=== PATIENT | male | born 1965 | race Caucasian/White ===

== ENCOUNTER 2019-08-17 14:00 | Emergency (ER) | payer BC, SELFPAY ==
[2019-08-17 14:09] VITALS: BP 132/86; PULSE 99; RESP 18; TEMP 36.7; O2SAT 97
--- NOTE | 2019-08-17 14:19 | ED.GENADULT ---
HPI - General Adult General Chief complaint: Abdominal Pain Stated complaint: abd pain Time Seen by Provider: 08/17/19 14:19 Source: patient Mode of arrival: ambulatory Limitations: no limitations History of Present Illness HPI narrative: 54-year-old male patient presents to the [facility] with complaints of abdominal pain and vomiting for the past 5 to 6 days. Patient states he started when he had some alcohol over the weekend as well as eating some spaghetti. Patient states the next day he had some slight abdominal pain a little bit of vomiting. Patient states not as much vomiting in the last couple of days denies any diarrhea but has had some upset stomach issues going on. Patient does have a history of diabetes but denies checking his sugar. Patient states he has had diabetic ketoacidosis before in the past. Patient states the only thing he has been taking for his symptoms is leftover [place] that is over 5 years . Patient states he does smoke, drink alcohol and does smoke cannabis. Patient states in the past he was always treated with narcotics for his stomach pain. Patient states he is also been under a lot of stress recently and thinks he might have some ulcers. Related Data Home Medications Medication Instructions Recorded Confirmed amlodipine [Norvasc] 10 mg PO DAILY 08/17/19 08/17/19 glimepiride [Amaryl] 2 mg PO QID 08/17/19 08/17/19 lisinopril 40 mg PO DAILY 08/17/19 08/17/19 metformin [Glucophage] 1,000 mg PO BID 08/17/19 08/17/19 pantoprazole [Protonix] 40 mg PO HS 08/17/19 08/17/19 Allergies Allergy/AdvReac Type Severity Reaction Status Date / Time erythromycin base Allergy Unknown Unknown Verified 08/17/19 14:28 Review of Systems Review of Systems: Narrative: CONSTITUTIONAL: Denies fever, chills, or sweats. EYES: Denies visual changes, redness, or discharge. ENT: Denies rhinorrhea, congestion, sore throat, or otalgia. CARDIOVASCULAR: Denies chest pain, palpitations, or edema. RESPIRATORY: Denies cough or dyspnea. GASTROINTESTINAL: Positive abdominal pain, nausea, vomiting, denies diarrhea. GENITOURINARY: Denies dysuria or hematuria. SKIN: Denies rash or itching. MUSCULOSKELETAL: Denies back pain, joint pain, or myalgia. NEUROLOGIC: Denies headache, numbness, or weakness. PSYCHIATRIC: Denies anxiety or depression. [facility] Past Medical History Medical History (Updated 08/17/19 @ 14:41 by EDSON Araujo) Alcohol use Bronchitis Dysphagia Esophageal stricture Gastric cancer Gastric nodule GERD (gastroesophageal reflux disease) Hiatal hernia Hypertension Sleep apnea Type 2 diabetes mellitus Surgical History Surgical History (Updated 08/17/19 @ 14:23 by EDSON Araujo) Hx of tonsillectomy Family History Family History Other Diabetes mellitus Social History Social History (Updated 08/17/19 @ 14:25 by EDSON Araujo) Smoking status: Current every day smoker Alcohol intake: current Gender identity (if verbalized by the patient): Male Comments At the time of my signature I agree with nursing past medical history, surgical, social, and family history. There is no relevant family history pertinent to the presenting complaint. Exam Narrative: Exam Narrative: GENERAL: Well-appearing, well-nourished, and in no acute distress. HEAD: Normocephalic, atraumatic. EYES: PERRLA and EOMI. ENT: Nares clear, no rhinorrhea or epistaxis. Mucous membranes moist. NECK: Supple. No lymphadenopathy CHEST: Clear to auscultation. No respiratory distress. HEART: Regular rate and rhythm. No murmur heard. Normal peripheral pulses. ABDOMEN: Soft, flat, distended. No guarding, rebound tenderness, or rigid. No pulsatilla masses. Bowel sounds present in all four quadrants. No organomegaly. Negative Nayak?s sign. No periumbicial tenderness. No Supra public tenderness or distension. Good femoral pulses bilaterally. No hernia noted. No s
[2019-08-17 14:29] LABS: Glucose Point of Care 264 (65-105)
== END 2019-08-17 14:50 | disposition home or self-care (01) ==
PROVIDERS: Emergency Provider Nurse Practitioner Family; PCP Registered Nurse
DX: K21.9 Gastro-esophageal reflux disease without esophagitis (principal); F17.210 Nicotine dependence, cigarettes, uncomplicated; I10 Essential (primary) hypertension; E11.9 Type 2 diabetes mellitus without complications; G47.30 Sleep apnea, unspecified; Z85.00 Personal history of malignant neoplasm of unspecified digestive organ
CPT/HCPCS: 82948; 99213; G0463

== ENCOUNTER 2019-08-28 10:15 | Emergency (ER) | payer BC, SELFPAY ==
[2019-08-28 10:23] VITALS: BP 162/100; PULSE 94; RESP 18; TEMP 36.2; O2SAT 100
--- NOTE | 2019-08-28 10:34 | ED.ABDPAIN ---
HPI - Abdominal Pain General Chief Complaint: Abdominal Pain Stated Complaint: abd pain Time Seen by Provider: 08/28/19 10:25 Source: patient, RN notes reviewed and old records reviewed Mode of arrival: ambulatory Limitations: no limitations History of Present Illness HPI narrative: Patient presents today complaining of a several week history of increased GERD symptoms and upper abdominal pain. He was seen at urgent care on 08/17/2019 and discharged home with prescriptions for omeprazole, Pepcid, and Zofran. Patient already takes 40 mg of Protonix at night. He has seen his PCP regarding his increased symptoms and was told to make an appointment with GI, which she has not done. He believes he has ulcers and came to urgent care today to get antibiotics. He currently rates his pain 5/10. Denies fever, recent vomiting, diarrhea. He has not made any dietary changes since his last visit, except for not drinking alcohol. Reports history of gastric ulcers in the past. MD elicited complaint: abdominal pain Related Data Home Medications Medication Instructions Recorded Confirmed amlodipine [Norvasc] 10 mg PO DAILY 08/17/19 08/17/19 glimepiride [Amaryl] 2 mg PO QID 08/17/19 08/17/19 lisinopril 40 mg PO DAILY 08/17/19 08/17/19 metformin [Glucophage] 1,000 mg PO BID 08/17/19 08/17/19 pantoprazole [Protonix] 40 mg PO HS 08/17/19 08/17/19 Allergies Allergy/AdvReac Type Severity Reaction Status Date / Time erythromycin base Allergy Unknown Unknown Verified 08/28/19 10:27 Review of Systems Review of Systems: Narrative: CONSTITUTIONAL: Denies body aches, fever, chills, or sweats. EYES: Denies visual changes, redness, or discharge. ENT: Denies rhinorrhea, congestion, sore throat, or otalgia. CARDIOVASCULAR: Denies chest pain, palpitations, or edema. RESPIRATORY: Denies cough or dyspnea. GASTROINTESTINAL: Denies nausea, vomiting, or diarrhea.+ Abdominal pain GENITOURINARY: Denies dysuria or hematuria. SKIN: Denies rash, itching, or wounds. MUSCULOSKELETAL: Denies back pain, joint pain, or myalgia. NEUROLOGIC: Denies headache, numbness, tingling, or weakness. PSYCH: Denies depression or anxiety. [facility] Past Medical History Medical History (Updated 08/28/19 @ 10:38 by Christine Little, EDSON, ) Alcohol use Bronchitis Dysphagia Esophageal stricture Gastric cancer Gastric nodule GERD (gastroesophageal reflux disease) Hiatal hernia Hypertension Sleep apnea Type 2 diabetes mellitus Surgical History Surgical History (Updated 08/17/19 @ 14:23 by EDSON Araujo) Hx of tonsillectomy Social History Social History (Updated 08/17/19 @ 14:25 by EDSON Araujo) Smoking status: Current every day smoker Alcohol intake: current Gender identity (if verbalized by the patient): Male Comments At time of signature, I have reviewed and agree with nursing past medical, surgical, social and family history unless otherwise noted. Please see nursing chart for further information. There is no relevant family history pertinent to the presenting complaint Exam Narrative: Exam Narrative: GENERAL: Well-appearing, well-nourished, and in no acute distress. HEAD: Normocephalic, atraumatic. EYES: EOMI. No redness or drainage. Conjunctivae normal. ENT: Mucous membranes pink and moist. NECK: Normal AROM. Supple. No lymphadenopathy. CHEST: No respiratory distress. Clear to auscultation. HEART: Regular rate and rhythm. No murmur appreciated. Normal peripheral pulses. ABDOMEN: Soft, nontender, nondistended, normal active bowel sounds. MUSCULOSKELETAL: No bony tenderness. EXTREMITIES: Normal range of motion. No edema. SKIN: Warm, dry, no rash. NEURO: No focal deficits. Alert and oriented x3. Gait steady. PSYCH: Normal affect. No signs of depression or anxiety. Course Vital Signs Vital signs: Vital Signs Temperature 97.1 F L 08/28/19 10:23 Pulse Rate 94 08/28/19 10:23 Respiratory Rate 18 08/28/19 10:23 Blood
--- NOTE | 2019-08-28 10:36 | PC.NURSE ---
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
== END 2019-08-28 10:42 | disposition home or self-care (01) ==
PROVIDERS: Emergency Provider Nurse Practitioner; PCP Registered Nurse
DX: K29.70 Gastritis, unspecified, without bleeding (principal); K21.9 Gastro-esophageal reflux disease without esophagitis; F17.200 Nicotine dependence, unspecified, uncomplicated; I10 Essential (primary) hypertension; G47.30 Sleep apnea, unspecified; E11.9 Type 2 diabetes mellitus without complications
CPT/HCPCS: 99213; G0463

== ENCOUNTER 2019-11-28 19:32 | Emergency (ER) | payer BC, SELFPAY ==
--- NOTE | 2019-11-28 19:38 | ED.GENADULT ---
HPI - General Adult General Stated complaint: sore throat Time Seen by Provider: 11/28/19 19:37 Source: patient Mode of arrival: ambulatory Limitations: no limitations History of Present Illness HPI narrative: 54-year-old male patient presents to the [facility] with complaints of sore throat that started Wednesday. Patient states he has not had a fever that he is aware of. Denies any ear pain, runny nose or any drainage to the back the throat. Patient states he is a smoker. Patient denies any chest pain or shortness of breath. Patient states he has had strep before in the past and has since had his tonsils removed. Patient states he has had strep since having his tonsils removed and responded, get checked out today. Related Data Home Medications Medication Instructions Recorded Confirmed amlodipine [Norvasc] 10 mg PO DAILY 08/17/19 08/17/19 glimepiride [Amaryl] 2 mg PO QID 08/17/19 08/17/19 lisinopril 40 mg PO DAILY 08/17/19 08/17/19 metformin [Glucophage] 1,000 mg PO BID 08/17/19 08/17/19 pantoprazole [Protonix] 40 mg PO HS 08/17/19 08/17/19 Allergies Allergy/AdvReac Type Severity Reaction Status Date / Time erythromycin base Allergy Unknown Unknown Verified 08/28/19 10:27 Review of Systems Review of Systems: Narrative: CONSTITUTIONAL: Denies fever, chills, or sweats. EYES: Denies visual changes, redness, or discharge. ENT: Denies rhinorrhea, congestion, positive sore throat, denies otalgia. CARDIOVASCULAR: Denies chest pain, palpitations, or edema. RESPIRATORY: Denies cough or dyspnea. GASTROINTESTINAL: Denies abdominal pain, nausea, vomiting, or diarrhea. GENITOURINARY: Denies dysuria or hematuria. SKIN: Denies rash or itching. MUSCULOSKELETAL: Denies back pain, joint pain, or myalgia. NEUROLOGIC: Denies headache, numbness, or weakness. PSYCHIATRIC: Denies anxiety or depression. [facility] Past Medical History Medical History Alcohol use Bronchitis Dysphagia Esophageal stricture Gastric cancer Gastric nodule GERD (gastroesophageal reflux disease) Hiatal hernia Hypertension Sleep apnea Type 2 diabetes mellitus Surgical History Surgical History Hx of tonsillectomy Social History Social History Smoking status: Current every day smoker Alcohol intake: current Gender identity (if verbalized by the patient): Male Comments At the time of my signature I agree with nursing past medical history, surgical, social, and family history. There is no relevant family history pertinent to the presenting complaint. Exam Narrative: Exam Narrative: GENERAL: Well-appearing, well-nourished, and in no acute distress. HEAD: Normocephalic, atraumatic. EYES: PERRLA and EOMI. ENT: Nares clear, no rhinorrhea or epistaxis. Mucous membranes moist. Posterior pharynx with erythema, bilateral tonsillar swelling. No exudates or lesions present. Bilateral TMs are clear no erythema or foreign bodies in the canal. NECK: Supple. No lymphadenopathy CHEST: Clear to auscultation. No respiratory distress. Patient able talk in clear complete sentences. HEART: Regular rate and rhythm. No murmur heard. Normal peripheral pulses. ABDOMEN: Soft, nontender, nondistended, normal active bowel sounds. EXTREMITIES: Normal range of motion. No edema. SKIN: Warm, dry, no rash. NEURO: No focal deficits. Alert and oriented x3. Course Reevaluation(s) Reevaluation #1: Reevaluated patient after his strep test had resulted. Discussed with him that his strep test is negative today. Discussed with him this is most likely viral and I would recommend taking Tylenol for the pain, warm salt water gargles, hot tea and honey to help soothe the throat. Discussed with patient if the strep culture comes back positive in the next day or 2 [address] call and place him on antibiotics at that time. Patient is
[2019-11-28 19:41] VITALS: BP 148/90; PULSE 102; RESP 16; TEMP 36.8; O2SAT 99
== END 2019-11-28 20:07 | disposition home or self-care (01) ==
PROVIDERS: Emergency Provider Nurse Practitioner Family; PCP Registered Nurse
DX: J02.9 Acute pharyngitis, unspecified (principal); G47.30 Sleep apnea, unspecified; I10 Essential (primary) hypertension; K21.9 Gastro-esophageal reflux disease without esophagitis; Z79.84 Long term (current) use of oral hypoglycemic drugs; F17.200 Nicotine dependence, unspecified, uncomplicated; Z85.00 Personal history of malignant neoplasm of unspecified digestive organ
CPT/HCPCS: 87081; 87880; 99213; G0463

== ENCOUNTER 2022-05-20 13:22 | Emergency (ER) | payer BC, SELFPAY ==
--- NOTE | 2022-05-20 13:28 | ED.URI ---
HPI - URI/Sore Throat General Chief Complaint: Upper Respiratory Infection Stated Complaint: cold/flu like sx Time Seen by Provider: 05/20/22 14:03 Source: patient and RN notes reviewed Mode of arrival: ambulatory Limitations: no limitations History of Present Illness HPI Narrative: [age]-old male presents concern for body aches, sore throat that started yesterday. 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 He denies fevers, nasal congestion, postnasal drainage, chills, sweats, runny nose, headache, upset stomach MD elicited complaint: sore throat Related Data Home Medications Medication Instructions Recorded Confirmed amlodipine 10 mg tablet (Norvasc) 10 mg PO DAILY 08/17/19 05/20/22 glimepiride 2 mg tablet (Amaryl) 2 mg PO QID 08/17/19 05/20/22 lisinopril 40 mg tablet 40 mg PO DAILY 08/17/19 05/20/22 metformin 1,000 mg tablet 1,000 mg PO BID 08/17/19 05/20/22 (Glucophage) pantoprazole 40 mg tablet,delayed 40 mg PO HS 08/17/19 05/20/22 release (Protonix) Allergies Allergy/AdvReac Type Severity Reaction Status Date / Time erythromycin base Allergy Unknown Unknown Verified 08/28/19 10:27 Review of Systems Review of Systems: CONSTITUTIONAL: Denies malaise, chills, sweats, or fever. EYES: Denies visual changes, redness, or discharge. ENT: Reports rhinorrhea, congestion, sinus pain, otalgia and sore throat. CARDIOVASCULAR: Denies chest pain, palpitations, or edema. RESPIRATORY: Reports cough. Denies dyspnea. GASTROINTESTINAL: Denies abdominal pain, nausea, vomiting, diarrhea SKIN: Denies rash or itching. MUSCULOSKELETAL: Denies myalgia. NEUROLOGIC: Denies headache. All systems reviewed & are unremarkable except as noted in HPI and below PMFSH Past Medical History Medical History (Updated 05/20/22 @ 14:25 by Linn Storey NP) Alcohol use Bronchitis Dysphagia Esophageal stricture Gastric cancer Gastric nodule GERD (gastroesophageal reflux disease) Hiatal hernia Hypertension Sleep apnea Type 2 diabetes mellitus Surgical History Surgical History Hx of tonsillectomy Family History Family History Other Diabetes mellitus Social History Social History Smoking status: Current every day smoker Alcohol intake: current Gender identity (if verbalized by the patient): Male Comments At time of signature, agree with nursing past medical, surgical, social and family history. There is no relevant family history pertinent to the presenting complaint Exam Narrative: GENERAL: Nontoxic-appearing and in no acute distress. HEAD: Normocephalic EYES: PERRLA, conjunctivae clear ENT: Nares mariano. Mucous membranes moist. TM pearly alba with dull light reflex bilaterally; no tragal tenderness. Oropharynx erythematous without lesions. Tonsils enlarged with copious exudate, no drooling, no hoarseness, no trismus, uvula midline. NECK: Supple. No lymphadenopathy CHEST: Clear to auscultation, breath sounds equal. No wheezing, rhonchi, rales, or stridor. No respiratory distress, speaks in full sentences. HEART: Regular rate and rhythm. No murmur heard. SKIN: Warm, dry, no rash. NEURO: Alert and oriented x3. PSYCH: Normal mood and affect Course Course Emergency Course: Patient is aware of diagnosis, understands and agrees to treatment plan. Anticipatory guidance given. Patient agrees to follow-up as directed and is aware of reasons to seek care at the emergency department. Portions of this record may have been created with voice recognition software Level of Care: Express Care Visit Vital Signs Vital signs: Vital Signs Temperature 98.4 F 05/20/22 13:39 Pulse Rate 102 H 05/20/22 13:39 Respiratory Rate 20 05/20/22 13:39 Blood Pressure 127/66 05/20/22 13:39 Pulse Oximetry 98 05/20/22 13:
[2022-05-20 13:39] VITALS: BP 127/66; PULSE 102; RESP 20; TEMP 36.9; O2SAT 98
== END 2022-05-20 14:33 | disposition home or self-care (01) ==
PROVIDERS: Emergency Provider Nurse Practitioner; PCP Registered Nurse
DX: J02.0 Streptococcal pharyngitis (principal); Z20.822 Contact with and (suspected) exposure to COVID-19; F17.200 Nicotine dependence, unspecified, uncomplicated; K21.9 Gastro-esophageal reflux disease without esophagitis; I10 Essential (primary) hypertension; E11.9 Type 2 diabetes mellitus without complications
CPT/HCPCS: 87426; 87804; 87880; 99213; C9803; G0463

== ENCOUNTER 2025-01-16 02:38 | Day surgery (SDC) | payer BC, SELFPAY ==
[2025-01-03 14:49] VITALS: BMI 32.3
--- OUTSIDE RECORDS SUMMARY | 2025-01-16 02:42 | XMS_ITS | Encounter Summary ---
Author Organization [facility] Address [address] [place] [id number] Care Team Providers Care Embedded Systems Designer Name Role Phone Radha Bower Primary Care Provider [phone] Encounter Details Date Type Department Care Team (Late Contact Info) Description 04/18/2018 Abstract HEALTH INFO [facility] Scanned, Documents Social History Tobacco Use Types Packs/Day Years Used Date Smoking Tobacco: Every Day Cigarettes Smokeless Tobacco: Never Alcohol Use Standard Drinks/Week Comments Yes 0 (1 standard drink = 0.6 oz pur e alcohol) Sex and Gender Information Value Date Recorded Sex Assigned at Male 10/03/2024 2:16 PM CDT Legal Sex Male 7:10 PM CDT Gender Identity Not on file Sexual Orientation Not on file documented as of this encounter Plan of Treatment Not on file documented as of this encounter Visit Diagnoses Not on filedocumented in this encounter Care Teams Embedded Systems Designer Relationship Specialty Start Date End Date Radha Bower APNP [address] [place] [address] PCP - General NURSE PRACTITIONER 03/19/18 documented as of this encounter
--- OUTSIDE RECORDS SUMMARY | 2025-01-16 02:42 | XMS_ITS | Clinical Summary ---
Author Organization [facility] Physician Office Building [address] [place] [id number] Care Team Providers Care Space And Storage Clerk Name Role Phone Radha Bower Primary Care Provider + Allergies Active Allergy Reactions Criticality Noted Date Comments Erythromycin Hives Medium 08/08/2012 Medications amLODIPine (NORVASC) 10 mg tablet Take 1 tablet (10 mg total) by mouth daily 08/25/19 19 Active lisinopril (PRINIVIL,ZESTR IL) 40 mg tablet Take 1 tablet (40 mg total) by mouth daily 08/25/[address] (PROTONIX) 40 mg EC tablet Take 1 tablet (40 mg total) by mouth daily 08/25/19 19 Active CONTOUR NEXT METER miscIndications :Type 2 diabetes mellitus with hyperglycemia, without long-term current use of insulin ([facility]) FOR DAILY USE DX:E11.65 not insulin dependent 1 each 06/19/19 20 Active lancets miscIndications :Type 2 diabetes mellitus with hyperglycemia, with long-term current use of insulin ([facility]) Lancets for contour next meter.test blood sugars 2 times daily 100 each 3 07/15/19 21 Active rosuvastatin (CRESTOR) 10 mg tablet 09/17/19 21 Active pen needle, diabetic (BD Mikaela 2nd Gen Pen Needle) 32 gauge x 32 needleIndicatio ns:Type 2 diabetes mellitus with hyperglycemia, with long-term current use of insulin ([facility]) Use 4 x daily as directed 120 each 11 07/14/19 22 Active Contour Next Test Strips stripIndication s:Type 2 diabetes mellitus with hyperglycemia, with long-term current use of insulin ([facility]) USE TO TEST TWICE DAILY 200 strip 11 08/31/19 24 Active metFORMIN (GLUCOPHAGE) 1,000 mg tabletIndicatio ns:Type 2 diabetes mellitus with hyperglycemia, with long-term current use of insulin ([facility]) TAKE 1 TABLET(1000 MG) BY MOUTH TWICE DAILY WITH MEALS 180 tablet 3 05/08/20 24 Active insulin glargine-lixise natide (Soliqua 100/33) 100 unit-33 mcg/mL insulin penIndications: Type 2 diabetes mellitus with hyperglycemia, with long-term current use of insulin ([facility]) Inject 60 Units under the skin daily 30 mL 3 09/09/19 25 026 Active glimepiride (AMARYL) 2 mg tabletIndicatio ns:Type 2 diabetes mellitus with hyperglycemia, with long-term current use of insulin ([facility]) TAKE 2 TABLETS(4 MG) BY MOUTH TWICE DAILY WITH MEALS 360 tablet 3 11/01/19 25 Active phentermine (ADIPEX-P) 37.5 mg tabletIndicatio ns:Class 1 obesity due to excess calories with serious comorbidity and body mass index (BMI) of 33.0 to 33.9 in adult Take 1 tablet (37.5 mg total) by mouth daily before breakfast 90 tablet 1 12/29/19 25 Active metFORMIN (GLUCOPHAGE) 1,000 mg tabletIndicatio ns:Type 2 diabetes mellitus with hyperglycemia, with long-term current use of insulin ([facility]) TAKE 1 TABLET(1000 MG) BY MOUTH TWICE DAILY WITH MEALS 180 tablet 3 05/08/20 24 025 Discontinued(Du plicate order) phentermine (ADIPEX-P) 37.5 mg tabletIndicatio ns:Class 1 obesity due to excess calories with serious comorbidity and body mass index (BMI) of 33.0 to 33.9 in adult TAKE 1 TABLET(37.5 MG) BY MOUTH DAILY BEFORE BREAKFAST 90 tablet 1 09/19/19 25 025 Discontinued Active Problems Problem Noted Date Diagnosed Date Hyperlipidemia associated with type 2 diabetes emily michael 12/02/2020 Assessment & Plan (12/28/2024 11:39 AM CDT): Chronic problem. At goal on current Rosuvastatin 10mg. Last lipid panel: 09/13/24 LDL=68, JR=548. Assessment & Plan (09/08/2024 9:21 AM CDT): Chronic problem. At goal on current Rosuvastatin 10mg. Last lipid panel: 10/05/23 LDL=66, QO=641. Will update labs. Does not mychart. Verified phone #/address to contact re: results. Assessment & Plan (04/25/2024 9:51 AM TRANSFER SPECIALIST): Chronic problem. At goal on current Rosuvastatin 10mg. Last lipid panel: 10/05/23 LDL=66, HJ=840. Assessment & Plan (12/28/2023 1:44 PM CDT): Chronic problem. At goal on current Rosuvastatin 10mg. Last lipid panel: 10/05/23 LDL=66, ZM=702. Assessment & Plan (03/22/2023 2:29 PM CDT): Chronic problem. At goal on current Rosuvastatin 10mg. Last lipid panel: 09/17/22 LDL=70, AA=796. 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 A1c uncontrolled but decreased slightly from 9.4% 09/08/24 to now 9.3%. insurance does not cover Ozempic nor Mounjaro. Will maximize the Soliqua. Discussed diet at length; poor intake. Increase Soliqua by 4 units every morning until fasting blood glucose is less than 130 every morning without lows overnight or during day. Max is 60 units/day. -increase Soliqua now to 52 units daily & 56 units daily next week. (Next doses are 56 & then 60). Max dose is 60. Current medications: Metformin 1000mg twice daily with meals Glimepiride 4 mg twice daily with meals Soliqua 52 units daily UTD on labs. UTD on DM eye exam (05/12/24 [facility]. L eye Mild NPDR, no DME). Had appt 12/20/24. Letter sent to get copy of report. Strive for regular exercise (30min most days) and diet (get at least 4-5 servings of fruit and veggies daily, avoid processed foods, increase lean protein intake and decrease carb portions as well as fruit juices, regular soda & desserts). Watch carbs and simple sugars. Check the blood sugar twice daily. Check the feet daily for skin breakdown and infection. Assessment & Plan (09/08/2024 9:39 AM CDT): Chronic problem. A1c uncontrolled and worsened from 9.0% 04/25/24 to now 9.4%. insurance does not cover Ozempic nor Mounjaro. Will maximize the Soliqua. Discussed diet at length; poor intake. Smells of ETOH at this mornings visit. Increase Soliqua by 4 units every morning until fasting blood glucose is less than 130 every morning without lows overnight or during day. Max is 60 units/day. -increase Soliqua now to 48 units daily & 52 units daily next week. (Next doses are 56 & then 60). Max dose is 60. Current medications: Metformin 1000mg twice daily with meals Glimepiride 4 mg twice daily with meals Soliqua 48 units at daily Will update labs. Does not mychart. Verified phone #/address to contact re: results. UTD on DM eye exam (05/12/24 [facility]. L eye Mild NPDR, no DME). Had appt 08/2024. Letter sent to get copy of report. Strive for regular exercise (30min most days) and diet (get at least 4-5 servings of fruit and veggies daily, avoid processed foods, increase lean protein intake and decrease carb portions as well as fruit juices, regular soda & desserts). Watch carbs and simple sugars. Check the blood sugar twice daily. Check the feet daily for skin breakdown and infection. Assessment & Plan (04/25/2024 10:06 AM TRANSFER SPECIALIST): Chronic problem. A1c uncontrolled and worsened from 8.3% 12/28/23 to now 9.0%. will check to see if yolanda/flex is on formulary for new insurance for next year. Increase Soliqua by 4 units every morning until fasting blood glucose is less than 130 every morning without lows overnight or during day. Max is 60 units/day. -increase Soliqua now to 44 units daily & 48 units daily next week. Stay at 48 units. Current medications: Metformin 1000mg twice daily with meals Glimepiride 4 mg twice daily with meals Soliqua 44 units at daily UTD on labs. DM eye exam Strive for regular exercise (30min most days) and diet (get at least 4-5 servings of fruit and veggies daily, avoid processed foods, increase lean protein intake and decrease carb portions as well as fruit juices, regular soda & desserts). Watch carbs and simple sugars. Check the blood sugar twice daily. Check the feet daily for skin breakdown and infection. Assessment & Plan (12/28/2023 2:17 PM CDT): Chronic problem. A1c uncontrolled at 8.3% but has decreased from 8.8% 03/22/23 -increase Soliqua by 4 units every morning until fasting blood glucose is less than 160 every morning without lows overnight or during day. Max is 60 units/day. Will increase up to 42 units at most until NOV. Current medications: Metformin 1000mg twice daily with meals Glimepiride 4 mg twice daily with meals Soliqua 34 units at daily UTD on labs. DM eye exam Strive for regular exercise (30min most days) and diet (get at least 4-5 servings of fruit and veggies daily, avoid processed foods, increase lean protein intake and decrease carb portions as well as fruit juices, regular soda & desserts). Watch carbs and simple sugars. Check the blood sugar twice daily. Check the feet daily for skin breakdown and infection. Assessment & Plan (03/22/2023 2:42 PM CDT): Chronic problem. A1c stable at 8.8% (was 9.0%). Reviewed diet. Has been taking soliqua at HS. Will move to morning dosing. Discussed need to take approx 1hr prior to 1st meal of day. Need to start checking BS BID as A1c does not match to his BS of 90s as he reports. Current medications: Metformin 1000mg twice daily with meals Glimepiride 4 mg twice daily with meals Soliqua 30 units at daily (move up time your taking the Soliqua daily by 2 hours to get to morning dosing instead of the evening). To call to set up DM eye exam. Will update MA/Cr today. Strive for regular exercise (30min most days) and diet (get at least 4-5 servings of fruit and veggies daily, avoid processed foods, increase lean protein intake and decrease carb portions as well as fruit juices, regular soda & desserts). Watch carbs and simple sugars. Check the blood sugar twice daily. Check the feet daily for skin breakdown and infection. Assessment & Plan (11/30/2022 7:14 PM CDT): Chronic, uncontrolled, worsening A1c 9.0 % Inconsistent Carb intake Counseled patient on diet and exercise Advised to work on healthy weight loss Pt does not want to do rapid acting insulin - advise to stop Semglee - Start Soliqua 30 units SQ daily - continue current Glimepiride and oral metformin dose - follow-up in 3 months Assessment & Plan (04/06/2022 2:04 PM CDT): Chronic, uncontrolled, worsening A1c 8.2 % Inconsistent Carb intake Counseled patient on diet and exercise Advised to work on healthy weight loss Patient deferred to try S GLT 2 inhibitors and GLP 1 agonist due to cost - continue current medication regimen Advise to take FASP insulin 6 to 10 units t.i.d. with meals - advised to check blood sugars before each meal - follow-up in 4 months Assessment & Plan (10/20/2021 11:51 AM CDT): Chronic, uncontrolled, improving A1c 7.6 % Counseled patient on diet and exercise Advised to work on healthy weight loss Patient deferred to try S GLT 2 inhibitors and GLP 1 agonist due to cost - continue current medication regimen Increase FASP insulin to 10 units t.i.d. with meals - advised to check blood sugars before each meal - make an eye exam appointments soon - follow-up in 4 months Assessment & Plan (07/14/2021 1:12 PM TRANSFER SPECIALIST): Chronic, uncontrolled, worsening A1c 8.7% Suspect postprandial hyperglycemia Counseled patient on diet and exercise Advised to work on healthy weight loss Patient deferred to try S GLT 2 inhibitors and GLP 1 agonist due to cost - continue current medication regimen Add FASP insulin 6 units t.i.d. with meals - advised to check blood sugars before each meal - make an eye exam appointments - follow-up in 3 months Assessment & Plan (04/07/2021 12:02 PM CDT): Diabetes is worsening HbA1c - 8.0 % Suspect post prandial hyperglycemia No BS log to review Advised pt to cut back on carbs intake, cut back on drinking and exercise Patient not willing to go up on his insulin dose or add any new medications Continue taking Lantus 30 units SQ daily at Bedtime Keep taking Metformin and Glimepiride the same Start checking blood sugars - before breakfast and before dinner and bedtime GLP-1 agonist and SGLT-2 inhibitors are expensive - Keep working on portion control diet and work on exercise Healthy weight loss - advised to make an eye exam appointment soon - labs before next appointment - follow up in 3 months Reminded to bring in blood sugar diary at next visit. Dietary recommendations for ADA diet. Regular aerobic exercise. Discussed ways to avoid symptomatic hypoglycemia. Discussed sick day management. Discussed foot care. Reminded to get yearly retinal exam. Medication changes per orders. Diabetes will be reassessed in 3 months. Assessment & Plan (12/02/2020 11:07 AM CDT): Diabetes is improving with treatment slowly HbA1c - 7.7 % Suspect post prandial hyperglycemia No BS log to review Advised pt to cut back on carbs intake, cut back on drinking and exercise Continue taking Lantus 30 units SQ daily at Bedtime Keep taking Metformin and Glimepiride the same Start checking blood sugars - before breakfast and before dinner and bedtime GLP-1 agonist and SGLT-2 inhibitors are expensive - Keep working on portion control diet and work on exercise Healthy weight loss - follow up in 5 months Reminded to bring in blood sugar diary at next visit. Dietary recommendations for ADA diet. Regular aerobic exercise. Discussed ways to avoid symptomatic hypoglycemia. Discussed sick day management. Discussed foot care. Reminded to get yearly retinal exam. Medication changes per orders. Diabetes will be reassessed in 3 months. Assessment & Plan (07/15/2020 2:02 PM TRANSFER SPECIALIST): Diabetes is unchanged HbA1c - 7.9 % Suspect post prandial hyperglycemia No BS log to review Advised pt to cut back on carbs intake, cut back on drinking and exercise Continue taking Lantus 30 units SQ daily at Bedtime Start Farxiga 10 mg oral daily Keep taking Metformin and Glimepiride the same Start checking blood sugars - before breakfast and before dinner and bedtime - Keep working on portion control diet and work on exercise Healthy weight loss - follow up in 3 months Reminded to bring in blood sugar diary at next visit. Dietary recommendations for ADA diet. Regular aerobic exercise. Discussed ways to avoid symptomatic hypoglycemia. Discussed sick day management. Discussed foot care. Reminded to get yearly retinal exam. Medication changes per orders. Diabetes will be reassessed in 3 months. Assessment & Plan (03/25/2020 12:48 PM CDT): Diabetes is improving with treatment HbA1c - 7.9 % Continue taking Lantus 30 units SQ daily at Bedtime Start Farxiga 10 mg oral daily Keep taking Metformin and Glimepiride the same Start checking blood sugars - before breakfast and before dinner and bedtime - Keep working on portion control diet and work on exercise Healthy weight loss - follow up in 3 months Reminded to bring in blood sugar diary at next visit. Dietary recommendations for ADA diet. Regular aerobic exercise. Discussed ways to avoid symptomatic hypoglycemia. Discussed sick day management. Discussed foot care. Reminded to get yearly retinal exam. Medication changes per orders. Diabetes will be reassessed in 3 months. Assessment & Plan (01/29/2020 10:23 PM CDT): Diabetes is worsening HbA1c - 9.8 % Start taking Lantus 24 units SQ daily at Bedtime If fasting blood sugars are over 130 , increase by 2 units every week ( up to max dose of 40 units SQ daily ) Keep taking Metformin and Glimepiride the same Start checking blood sugars - before breakfast and before dinner and bedtime - Keep working on portion control diet and work on exercise Healthy weight loss - follow up in 2 months - make an eye doctor appointment Reminded to bring in blood sugar diary at next visit. Dietary recommendations for ADA diet. Regular aerobic exercise. Discussed ways to avoid symptomatic hypoglycemia. Discussed sick day management. Discussed foot care. Reminded to get yearly retinal exam. Medication changes per orders. Diabetes will be reassessed in 2 months . Assessment & Plan (06/07/2019 7:32 PM TRANSFER SPECIALIST): Diabetes is improving with treatment and lifestyle modifications A1c Today - 8.2 % , but still not at goal - continue Glimepiride An Metformin The same - pt cannot afford Januvia - gave samples of Oral Semaglutide 3 mg daily and sent a script for 7 mg tab - check Blood sugars - twice daily - Before breakfast and before dinner - make an eye doctor appointment - follow up in 3 months Reminded to bring in blood sugar diary at next visit. Dietary recommendations for ADA diet. Regular aerobic exercise. Discussed ways to avoid symptomatic hypoglycemia. Discussed sick day management. Discussed foot care. Reminded to get yearly retinal exam. Medication changes per orders. Diabetes will be reassessed in 3 months. Assessment & Plan (02/27/2019 1:47 PM CDT): Diabetes is improving with treatment and lifestyle modifications A1c Today - 8.8 % , but still not at goal - pt has very poor insight regarding DM and healthy lifestyle habits - pt do not prefer to start any injectable medications or SGLT_2 inhibitor class of meds - Gave Januvia 100 mg and janumet samples today - gave instructions on how to take - continue Glimepiride The same - advise to take Metformin the same way when taking Januvia , but when taking janumet samples, advise to hold his regular metformin - check Blood sugars - twice daily - Before breakfast and before dinner - make an eye doctor appointment - follow up in 3 months Reminded to bring in blood sugar diary at next visit. Dietary recommendations for ADA diet. Regular aerobic exercise. Discussed ways to avoid symptomatic hypoglycemia. Discussed sick day management. Discussed foot care. Reminded to get yearly retinal exam. Medication changes per orders. Diabetes will be reassessed in 3 months. Assessment & Plan (11/22/2018 8:18 PM CDT): Diabetes is worsening. A1c Today - 10 % - pt has very poor insight regarding DM and healthy lifestyle habits - discussed about DM type 2, - patho physiology, short and senior care complications of uncontrolled DM, diet and exercise , importance on of BS monitoring, medications options - discussed goal BS and A1c targets - advise to start checking BS - before Meals and bedtime - advise to work on healthy diet, avoid processed foods , increase vegetables and protein and cut back on carb portions and also avoid fruit juices and regular soda and desserts - Start Januvia 100 mg oral daily with breakfast - continue Metformin and Glimepiride The same - start checking Blood sugars - twice daily - Before breakfast and before dinner - do labs JP - make an eye doctor appointment - follow up in 3 months Reminded to bring in blood sugar diary at next visit. Dietary recommendations for ADA diet. Regular aerobic exercise. Discussed ways to avoid symptomatic hypoglycemia. Discussed sick day management. Discussed foot care. Reminded to get yearly retinal exam. Medication changes per orders. Diabetes will be reassessed in 3 months. Hypertension associated with diabetes 11/21/2018 Assessment & Plan (12/28/2024 11:39 AM CDT): Chronic problem. Currently controlled Lisinopril 40mg daily, amlodipine 10mg daily Assessment & Plan (09/08/2024 9:21 AM CDT): Chronic problem. Currently controlled Lisinopril 40mg daily, amlodipine 10mg daily Will update labs. Does not mychart. Verified phone #/address to contact re: results. Assessment & Plan (04/25/2024 9:51 AM TRANSFER SPECIALIST): Chronic problem. Currently controlled Lisinopril 40mg daily, amlodipine 10mg daily Assessment & Plan (12/28/2023 1:44 PM CDT): Chronic problem. Currently controlled Lisinopril 40mg daily, amlodipine 10mg daily Assessment & Plan (03/22/2023 2:29 PM CDT): Chronic problem. Currently controlled Lisinopril 40mg daily, amlodipine 10mg daily Assessment & Plan (11/30/2022 7:12 PM CDT): Hypertension is improving with treatment. Continue current treatment regimen. Dietary sodium restriction. Weight loss. Regular aerobic exercise. Continue current medications. Blood pressure will be reassessed at the next regular appointment. Assessment & Plan (04/06/2022 2:05 PM CDT): Hypertension is improving with treatment. Continue current treatment regimen. Dietary sodium restriction. Weight loss. Regular aerobic exercise. Continue current medications. Blood pressure will be reassessed at the next regular appointment. Assessment & Plan (10/20/2021 11:09 AM CDT): Hypertension is improving with treatment. Continue current treatment regimen. Dietary sodium restriction. Weight loss. Regular aerobic exercise. Continue current medications. Blood pressure will be reassessed at the next regular appointment. Assessment & Plan (07/14/2021 11:48 AM TRANSFER SPECIALIST): Hypertension is improving with treatment. Continue current treatment regimen. Dietary sodium restriction. Weight loss. Regular aerobic exercise. Continue current medications. Blood pressure will be reassessed at the next regular appointment. Assessment & Plan (04/07/2021 12:01 PM CDT): Hypertension is improving with treatment. Continue current treatment regimen. Dietary sodium restriction. Weight loss. Regular aerobic exercise. Continue current medications. Blood pressure will be reassessed at the next regular appointment. Assessment & Plan (12/02/2020 10:46 AM CDT): Hypertension is improving with treatment. Continue current treatment regimen. Dietary sodium restriction. Weight loss. Regular aerobic exercise. Continue current medications. Blood pressure will be reassessed at the next regular appointment. Assessment & Plan (07/15/2020 1:55 PM TRANSFER SPECIALIST): Hypertension is improving with treatment. Continue current treatment regimen. Dietary sodium restriction. Weight loss. Regular aerobic exercise. Continue current medications. Blood pressure will be reassessed at the next regular appointment. Assessment & Plan (03/25/2020 11:20 AM CDT): Hypertension is improving with treatment. Continue current treatment regimen. Dietary sodium restriction. Weight loss. Regular aerobic exercise. Continue current medications. Blood pressure will be reassessed at the next regular appointment. Assessment & Plan (01/29/2020 10:22 PM CDT): Hypertension is improving with treatment. Continue current treatment regimen. Dietary sodium restriction. Weight loss. Regular aerobic exercise. Continue current medications. Blood pressure will be reassessed at the next regular appointment. Assessment & Plan (06/07/2019 7:33 PM TRANSFER SPECIALIST): Hypertension is improving with treatment. Continue current treatment regimen. Dietary sodium restriction. Weight loss. Regular aerobic exercise. Continue current medications. Blood pressure will be reassessed at the next regular appointment. Assessment & Plan (02/27/2019 1:47 PM CDT): Hypertension is chronic, well controlled, managed by PCP. Continue current treatment regimen. Dietary sodium restriction. Weight loss. Regular aerobic exercise. Continue current medications. Blood pressure will be reassessed at the next regular appointment. Assessment & Plan (11/22/2018 8:19 PM CDT): Hypertension is chronic, well controlled, managed by PCP. Continue current treatment regimen. Dietary sodium restriction. Weight loss. Regular aerobic exercise. Continue current medications. Blood pressure will be reassessed at the next regular appointment. Class 1 obesity due to exces s calories with serious comorbidity and body mass index (BMI) of 33.0 to 33.9 in adult 11/21/2018 Assessment & Plan (11/30/2022 7:15 PM CDT): Chronic, above goal , unchanged Discussed about healthy lifestyle habits advise to work on healthy diet, avoid processed foods , increase vegetables and protein and cut back on carb portions and also avoid fruit juices and regular soda and desserts Increase physical activity , recommend at least 150 min of aerobic activity per week and include resistance training 2 x weekly Assessment & Plan (04/06/2022 2:03 PM CDT): Chronic, above goal unchanged Discussed about healthy lifestyle habits advise to work on healthy diet, avoid processed foods , increase vegetables and protein and cut back on carb portions and also avoid fruit juices and regular soda and desserts Increase physical activity , recommend at least 150 min of aerobic activity per week and include resistance training 2 x weekly Assessment & Plan (10/20/2021 11:51 AM CDT): Chronic, slightly improving Discussed about healthy lifestyle habits advise to work on healthy diet, avoid processed foods , increase vegetables and protein and cut back on carb portions and also avoid fruit juices and regular soda and desserts Increase physical activity , recommend at least 150 min of aerobic activity per week and include resistance training 2 x weekly C/w Phentermine therapy Assessment & Plan (07/14/2021 1:12 PM TRANSFER SPECIALIST): Chronic, slightly worsening Discussed about healthy lifestyle habits advise to work on healthy diet, avoid processed foods , increase vegetables and protein and cut back on carb portions and also avoid fruit juices and regular soda and desserts Increase physical activity , recommend at least 150 min of aerobic activity per week and include resistance training 2 x weekly C/w Phentermine therapy Assessment & Plan (04/07/2021 12:03 PM CDT): Chronic, slowly improving with treatment Discussed about healthy lifestyle habits advise to work on healthy diet, avoid processed foods , increase vegetables and protein and cut back on carb portions and also avoid fruit juices and regular soda and desserts Increase physical activity , recommend at least 150 min of aerobic activity per week and include resistance training 2 x weekly C/w Phentermine therapy Assessment & Plan (12/02/2020 11:07 AM CDT): Chronic, slowly improving with treatment Discussed about healthy lifestyle habits advise to work on healthy diet, avoid processed foods , increase vegetables and protein and cut back on carb portions and also avoid fruit juices and regular soda and desserts Increase physical activity , recommend at least 150 min of aerobic activity per week and include resistance training 2 x weekly C/w Phentermine therapy Assessment & Plan (07/15/2020 1:54 PM TRANSFER SPECIALIST): Chronic, worsening Discussed about healthy lifestyle habits advise to work on healthy diet, avoid processed foods , increase vegetables and protein and cut back on carb portions and also avoid fruit juices and regular soda and desserts Increase physical activity , recommend at least 150 min of aerobic activity per week and include resistance training 2 x weekly - start Phentermine therapy Assessment & Plan (03/25/2020 11:20 AM CDT): Chronic, worsening Discussed about healthy lifestyle habits advise to work on healthy diet, avoid processed foods , increase vegetables and protein and cut back on carb portions and also avoid fruit juices and regular soda and desserts Increase physical activity , recommend at least 150 min of aerobic activity per week and include resistance training 2 x weekly Assessment & Plan (01/29/2020 10:22 PM CDT): Obesity is improving with lifestyle modifications. Discussed the patient's BMI. The BMI is above average; BMI management plan is completed. General weight loss/lifestyle modification strategies discussed (elicit support from others; identify saboteurs; non-food rewards, etc). Behavioral treatment: stress management. Diet interventions: moderate (500 kCal/d) deficit diet. Informal exercise measures discussed, e.g. taking stairs instead of elevator. Regular aerobic exercise program discussed. Assessment & Plan (06/07/2019 7:33 PM TRANSFER SPECIALIST): Obesity is improving with lifestyle modifications. Discussed the patient's BMI. The BMI is above average; BMI management plan is completed. General weight loss/lifestyle modification strategies discussed (elicit support from others; identify saboteurs; non-food rewards, etc). Behavioral treatment: stress management. Diet interventions: moderate (500 kCal/d) deficit diet. Informal exercise measures discussed, e.g. taking stairs instead of elevator. Regular aerobic exercise program discussed. Assessment & Plan (02/27/2019 1:47 PM CDT): Obesity is improving with lifestyle modifications. Discussed the patient's BMI. The BMI is above average; BMI management plan is completed. General weight loss/lifestyle modification strategies discussed (elicit support from others; identify saboteurs; non-food rewards, etc). Behavioral treatment: stress management. Diet interventions: moderate (500 kCal/d) deficit diet. Informal exercise measures discussed, e.g. taking stairs instead of elevator. Regular aerobic exercise program discussed. Assessment & Plan (11/22/2018 8:18 PM CDT): Obesity is worsening. Discussed the patient's BMI. The BMI is above average; BMI management plan is completed. General weight loss/lifestyle modification strategies discussed (elicit support from others; identify saboteurs; non-food rewards, etc). Behavioral treatment: stress management. Diet interventions: moderate (500 kCal/d) deficit diet. Informal exercise measures discussed, e.g. taking stairs instead of elevator. Regular aerobic exercise program discussed. Multinodular goiter 11/21/2017 Gastric polyp 11/13/2015 Encounters Date Type Department Care Team Description 01/10/2025 Results Follow-Up [facility] Diabetes and Endocrinology [address] [place] [phone] Jahaira Mackey, ENIO TSH, T4, free 01/09/[address] [facility] Diabetes and Endocrinology [address] [place] [phone] ProviderAnn-Marie MD 01/02/2025 10:[address] [facility] Outpatient Lab at [address] [phone] 01/02/2025 10:41 AM CDT - 01/02/2025 11:59 PM CDT Hospital Encounter [address] [address] Abnormal thyroid blood test Discharge Disposition: Discharge to home or self care 12/28/2024 11:30 AM CDT Office Visit [facility] Diabetes [facility] Endocrinology [address] [place] [phone] Jahaira Mackey, ENIO Type 2 diabetes mellitus with hyperglycemia, with long-term current use of insulin (HCC) (Primary Dx); Hypertension associated with diabetes (HCC); Hyperlipidemia associated with type 2 diabetes mellitus (HCC); Abnormal thyroid blood test 12/28/2024 Orders Only [facility] [address] [phone] Miriam Garcia MD Class 1 obesity due to excess calories with serious comorbidity and body mass index (BMI) of 33.0 to 33.9 in adult from Last 3 Months Surgical History Surgery Date Site/Laterality Comments TONSILLECTOMY Medical History Medical History Date Comments Type 2 diabetes mellitus Hypertension Multinodular goiter 2018 Status post bilateral nodule biopsy Obesity (BMI 30-39.9) Family History Medical History Relation Name Comments Cirrhosis Father Liver cancer Father Relation Name Status Comments Father Social History Tobacco Use Types Packs/Day Years Used Date Smoking Tobacco: Every Day Cigarettes Smokeless Tobacco: Never Alcohol Use Standard Drinks/Week Comments Yes 0 (1 standard drink = 0.6 oz pur e alcohol) AUDIT-C Answer Date Recorded Q1: How often do you have a drink containing alc ohol? 2-3 times a week 10/20/2021 Q2: How many drinks containi ng alcohol do you have on a typical day when you are drinking? 5 or 6 10/20/2021 Frequency of Binge Drinking Not on file 10/05 PHQ-2 Answer Date Recorded PHQ-2 Total Score (If total score is 3 or more points, staff should administer the PHQ-9) 0 04/06/2022 Sex and Gender Information Value Date Recorded Sex Assigned at Not on file Legal Sex Male 2:13 AM TRANSFER SPECIALIST Gender Identity Not on file Sexual Orientation Not on file Obstetrics History Last Filed Vital Signs Vital Sign Reading Time Taken Comments Blood Pressure 120/74 12/28/2024 11:27 AM CDT Pulse 104 12/28/2024 11:27 AM CDT Temperature - - Respiratory Rate 18 12/28/2024 11:2 7 AM CDT Oxygen Saturation - - Inhaled Oxygen Concentration - - Weight 103.2 kg (227 lb 9.6 oz) 025 11:27 AM CDT Height 177.8 cm (5' 10) 12/28/2024 11: 27 AM CDT Body Mass Index 32.66 12/28/2024 11:27 AM CDT Plan of Treatment Health Maintenance Due Date Last Done Comments Colon Cancer Screening-Colonoscopy 1966 Hepatitis C Screening 1966 Prostate Cancer Screening-PSA 1966 Hepatitis B Screening 1984 Regular Well Visit/Exam 18-64 1984 Pneumococcal vaccine <65 (1 of 2 - PCV) 1985 Zoster Vaccine (1 of 2) 2016 Depression Screening 04/06/2023 04/06/2022, 10/20/2021, 07/14/2021, Additional history exists Covid-19 Vaccine (2 - 2023-2 5 season) 2024 03/28/2021 DTaP/Tdap/Td Vaccine (2 - Td or Tdap) 12/12/2024 12/12/2014 Influenza Vaccine (#1) 2025 , 03/25/2022, 03/25/2021, Additional history exists Hemoglobin A1C 06/30/2025 12/28/2024, 04/0 09/2024, 04/25/2024, Additional history exists Dilated Eye Exam 08/29/2025 08/29/2024, 11/2023, 02/18/2022, Additional history exists Albumin Creatinine Ratio, Urine 09/13/2025 09/13/2024, 10/05/2023, 07/04/2021, Additional history exists Lipid Panel 09/13/2025 09/13/2024, 09/07, 10/05/2023, Additional history exists eGFR 09/13/2025 09/13/2024, 09/07, 09/17/2022, Additional history exists Foot Exam 12/28/2025 12/28/2024, 12/06, 11/30/2022, Additional history exists Procedures Procedure Name Priority Date/Time Associated Diagnosis Comments T4, FREE Routine 01/02/2025 10:41 AM CDT Abnormal thyroid blood test TSH Routine 01/02/2025 10:41 AM CDT Abnormal thyroid blood test POCT GLUCOSE Routine 12/28/2024 11:29 AM CDT Type 2 diabetes mellitus with hyperglycemia, with long-term current use of insulin (HCC) POCT HEMOGLOBIN A1C Routine 12/28/2024 1 1:29 AM CDT Type 2 diabetes mellitus with hyperglycemia, with long-term current use of insulin (HCC) EGFR Routine 09/13/2024 10:15 AM CDT Type 2 diabetes mellitus with hyperglycemia, with long-term current use of insulin (HCC) Hypertension associated with diabetes (HCC) LIPID PANEL Routine 09/13/2024 10:15 AM CDT Type 2 diabetes mellitus with hyperglycemia, with long-term current use of insulin (HCC) Hyperlipidemia associated with type 2 diabetes mellitus (HCC) ALBUMIN CREATININE RATIO, URINE Routine 09/13/2024 10:15 AM CDT Type 2 diabetes mellitus with hyperglycemia, with long-term current use of insulin (HCC) HM DIABETES EYE EXAM Routine 08/29/2024 7:50 AM CDT from Last 3 Months or Most Recently Relevant to Health Maintenance Results * (ABNORMAL) TSH (01/02/2025 10:41 AM CDT) Thyroid Stimulating Hormone 0.23(L) 0.30 - 4.20 mcIUnit/mL Blood 01/02/2025 10:4 1 AM CDT 01/02/2025 4:08 PM CDT us Jahairaaiden Mackey DIETARY DIRECTOR LAB BLOOD ORDERABLES Dedra l Result ELENA STONER [id number] [address] [facility] [place] [address] * T4, free (01/02/2025 10:41 AM CDT) Pathologist [facility] Free T4 1.25 0.90 - 1.70 ng/dL Blood 01/02/2025 10:4 1 AM CDT 01/02/2025 4:08 PM CDT us Jahairaaiden Mackey NP LAB BLOOD ORDERABLES Dedra l Result Performing Organization Address [facility] Co de Phone Number ELENA STONER [id number] [address] [facility] [place] [address] * (ABNORMAL) POCT hemoglobin A1c (12/28/2024 11:29 AM CDT) [facility] Hemoglobin A1C, POC 9.3(A) 4.0 - 5.6 % Capillary blood 12/28/2024 1 1:29 AM CDT us Jahairaaiden Mackey NP POINT OF CARE TEST ORDERA BLES Final Result * (ABNORMAL) POCT glucose (12/28/2024 11:29 AM CDT) Pathologist [facility] Glucose Blood, POC 342 Normal Fasting 70 - 100, Random <200 mg/dL Comment:PPG 5 Hrs Blood 12/28/2024 11:2 9 AM CDT us Jahaira Mackey NP POINT OF CARE TEST ORDERA BLES Final Result * eGFR (09/13/2024 10:15 AM CDT) eGFR >90 >=60 mL/min/1. 73 m2 Comment: Interpretive Data Reference Interval Normal >/= 90 mL/min/1.73m2 Mildly decreased* 60 - 89 mL/min/1.73m2 Mildly to moderately decreased 45 - 59 mL/min/1.73m2 Moderately to severely decreased 30 - 44 mL/min/1.73m2 Severely decreased 15 - 29 mL/min/1.73m2 Kidney Failure < 15 mL/min/1.73m2 *Relative to young adult level Estimated glomerular filtration rate is determined by the 2020 CKD-EPI equation recommended by the National Kidney Foundation (A Unifying Approach to GFR Estimation: Recommendations of the NKF-ASK Task Force on Reassessing the Inclusion of Race in Diagnosing Kidney Disease, JASN 2020). The CKD-EPI equation should not be used for patients with unstable renal function and has not been validated in children and those over 70. Current interpretive data was last reviewed 2021. Blood 09/13/2024 10:1 5 AM CDT 09/13/2024 8:54 PM CDT us Jahaira Mackey NP LAB BLOOD ORDERABLES Dedra castellon Result ELENA [address] [address] [facility] [place] [address] * (ABNORMAL) Albumin Creatinine Ratio, Urine (09/13/2024 10:15 AM CDT) Albumin Ur 258.5 mg/L Comment: Interpretive Data No reference range established. Current interpretive data was last revised 2018. Creatinine Ur 69.9 mg/dL ELENA Comment: Interpretive Data No reference range established. Current interpretive data was last revised 2018. Albumin Creatinine Ratio, Ur 370(H) 1 - 29 mg/g ELNEA Urine 09/13/2024 10:1 5 AM CDT 09/13/2024 8:51 PM CDT us Jahaira R. Schleeper DIETARY DIRECTOR LAB URINE ORDERABLES Dedra ravinder [facility] [address] [address] Department of [facility] [place] [id number] * (ABNORMAL) Lipid panel (09/13/2024 10:15 AM CDT) Cholesterol 134 30 - 199 mg/dL Comment: Interpretive Data Ages < or = 19 years Acceptable: <170 mg/dL Borderline high: 170-199 mg/dL High: >or= 200 mg/dL Ages > or = 20 years Desirable: <200 mg/dL Borderline high: 200-239 mg/dL High: >or= 240 mg/dL Literature References: 1. Expert Panel on Integrated Guidelines for Cardiovascular Health and Risk Reduction in Children and Adolescents. Pediatrics 2011;128:S213 2. NCEP Expert Panel. Circulation 2003;110:227 Current Interpretive Data was last revised on 2018. Triglycerides 192(H) <=149 mg/dL ELENA STONER Comment: Interpretive Data Ages < or = 9 years Acceptable: <75 mg/dL Borderline high: 75-99 mg/dL High: >or= 100 mg/dL Ages 10 to 20 years Acceptable: <90 mg/dL Borderline high: 90-129 mg/dL High: >or= 130 mg/dL Ages > or = 20 years Desirable: <150 mg/dL Borderline high: 150-199 mg/dL High: 200-499 mg/dL Very high: >or= 499 mg/dL Literature References: 1. Expert Panel on Integrated Guidelines for Cardiovascular Health and Risk Reduction in Children and Adolescents. Pediatrics 2011;128:S213 2. NCEP Expert Panel. Circulation 2004;110:227 Current Interpretive Data was last revised on 2018. HDL 34(L) >=40 mg/dL ELENA STONER Comment: Interpretive Data Ages < or = 19 years Acceptable: >45 mg/dL Borderline low: 40-45 mg/dL Low: <40 mg/dL Ages > or = 20 years Desirable: >or= 60 mg/dL Low: <40 mg/dL Literature References: 1. Expert Panel on Integrated Guidelines for Cardiovascular Health and Risk Reduction in Children and Adolescents. Pediatrics 2011;128:S213 2. NCEP Expert Panel. Circulation 2004;110:227 Current Interpretive Data was last revised on 2018. LDL, calculated 68 <=129 mg/dL ELENA STONER Comment: Interpretive Data Ages < or = 19 years Acceptable: <110 mg/dL Borderline high: 110-129 mg/dL High: >or= 130 mg/dL Ages > or = 20 years Optimal: <100 mg/dL Near optimal: 100-129 mg/dL Borderline high: 130-159 mg/dL High: >160 mg/dL Calculated using the Richard LDL-C estimating equation. This equation was implemented on 2024. Prior to this date LDL-C was estimated using the Friedewald equation. Literature References: 1. Expert Panel on Integrated Guidelines for Cardiovascular Health and Risk Reduction in Children and Adolescents. Pediatrics 2011;128:S213 2. NCEP Expert Panel. Circulation 2004;110:227 3. Richard Louise et al. BAY Cardiol. 2019October 05;5(5):540-548. doi: 10.1001/[email or web address].2020.0013 Current Interpretive Data was last revised on 2024. Non-HDL Cholesterol 100 mg/dL ELENA STONER Comment: Interpretive Data Ages < or = 19 years Acceptable: <120 mg/dL Borderline high: 120-144 mg/dL High: >145 mg/dL Ages > or = 20 years When triglycerides are >200 mg/dL, Non-HDL cholesterol is a secondary target of therapy with treatment goals that are 30 mg/dL greater than the LDL cholesterol target. Literature References: 1. Expert Panel on Integrated Guidelines for Cardiovascular Health and Risk Reduction in Children and Adolescents. Pediatrics 2011;128:S213 2. NCEP Expert Panel. Circulation 2004;110:227 Current Interpretive Data was last revised on 2018. Chol/HDL ratio 4 ELENA Blood 09/13/2024 10:1 5 AM CDT 09/13/2024 8:51 PM CDT us Jahaira Mackey NP LAB BLOOD ORDERABLES Dedra castellon Result [address] [id number] [address] [place] [address] * (ABNORMAL) DIABETES EYE EXAM (08/29/2024 7:50 AM CDT) us Historical Provider HEALTH MAINTENANCE Final Result from Last 3 Months or Most Recently Relevant to Health Maintenance [place] Care Teams Space [employer] Clerk Relationship Specialty Start Date End Date Radha Bower PA PCP - General Nurse Practitioner 09/27/18
--- OUTSIDE RECORDS SUMMARY | 2025-01-16 02:42 | XMS_ITS | Clinical Summary ---
Author Organization [facility] Address [address] [place] [address] Care Team Providers Care Labor Custodian Name Role Phone Unavailable Primary Care Provider Unavailabl e Immunizations Immunization Administration Dates Next Due Covid-19, Mrna, Lnp-s, Pf, 30 Mcg/0.3 Ml Dose (P fizer) 03/28/2021 Social History Tobacco Use Types Packs/Day Years Used Date Smoking Tobacco: Never Assessed Sex and Gender Information Value Date Recorded Sex Assigned at Not on file Legal Sex Male 11:18 AM CDT Gender Identity Not on file Sexual Orientation Not on file Plan of Treatment Health Maintenance Due Date Last Done Comments Hepatitis C Virus (HCV) Screening 1966 Hepatitis B Immunization (1 of 3 - 19+ 3-dose series) 1985 Cologuard 2011 Colonoscopy 2011 Colorectal Cancer Screening 2011 Immunochemical Fecal Occult Blood 2011 Pneumococcal Immunization (50+ years) (1 of 1 - PCV) 2016 Zoster Immunization (1 of 2) 2016 PSA Discussion 2021 SARS-COV-2 Immunization ( season) 2024 03/28/2021, 08/24/2020, 08/03/2020 Influenza Immunization (#1) 02/05/202503/07, 02/28/2020, 03/16/2019, Additional history exists Respiratory Syncytial Virus (RSV) Immunization (Adult) (1 - 1-dose 75+ series) 2041 DTaP/Tdap/Td Immunization Discontinued 12/12/2014 TdaP Immunization Completed 12/12/2014 Human Papillomavirus (HPV) Immunization Aged Out No longer eligible based on patient's age to complete this topic Meningococcal Immunization (ACWY) Aged Out No longer eligible based on patient's age to complete this topic Rotavirus Immunization Aged Out No lo nger eligible based on patient's age to complete this topic
--- OUTSIDE RECORDS SUMMARY | 2025-01-16 02:42 | XMS_ITS | Clinical Summary ---
Author Organization [facility] Address [facility] [place] [address] Care Team Providers Care Yarding And Folding Machine Operator Name Role Phone Radha Bower EMEKA Primary Care Provider Allergies Active Allergy Reactions Criticality Noted Date Comments Erythromycin Hives 08/08/2012 Medications Glucose Blood (CONTOUR NEXT TEST) test strip daily. 02/15/20 18 Active glimepiride 2 MG tabletIndications :Essential hypertension,Type 2 diabetes mellitus without complication, without long-term current use of insulin ([facility]),Need for influenza vaccination Take 2 tabs twice daily 360 tablet 1 04/18/20 18 Active metFORMIN 1000 MG tabletIndications :Type 2 diabetes mellitus without complication, without long-term current use of insulin ([facility]) Take 1 tablet (1,000 mg total) by mouth 2 (two) times daily. 180 tablet 3 08/25/19 19 Active phentermine (ADIPEX-P) 37.5 MG tablet Take 1 tablet (37.5 mg total) by mouth before breakfast. 08/13/19 23 Active SOLIQUA 100-33 UNT-MCG/ML Solution Pen-injector Inject 30 Units into the skin daily. 09/01/19 24 Active rosuvastatin (CRESTOR) 10 MG tabletIndications :Mixed hyperlipidemia Take 1 tablet (10 mg total) by mouth nightly at bedtime. 90 tablet 3 09/21/19 24 Active lisinopril (PRINIVIL) 40 MG tabletIndications :Essential hypertension TAKE 1 TABLET(40 MG) BY MOUTH DAILY 90 tablet 1 11/01/19 25 Active amLODIPine (NORVASC) 10 MG tabletIndications :Essential hypertension TAKE 1 TABLET(10 MG) BY MOUTH DAILY 90 tablet 1 11/01/19 25 Active pantoprazole EC (PROTONIX) 40 MG tabletIndications :Gastroesophageal reflux disease, unspecified whether esophagitis present TAKE 1 TABLET(40 MG) BY MOUTH EVERY MORNING BEFORE BREAKFAST 90 tablet 3 01/05/20 25 Active pantoprazole EC (PROTONIX) 40 MG tabletIndications :Gastroesophageal reflux disease, unspecified whether esophagitis present Take 1 tablet (40 mg total) by mouth every morning before breakfast. 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 associated with type 2 diabetes mellitus ([facility]) 03/25/2020 Overview (09/09/2022): Last Assessment & Plan: Reviewed pt recent eye exam report Keep following with Opthalmology as advised Keep working on tighter glycemic control GERD (gastroesophageal reflux disease) 0 Thyroid nodule 02/23/2018 Fatigue 02/08/2018 Multinodular goiter 11/21/2017 BMI 34.0-34.9,adult 03/04/2017 Abnormal TSH 09/04/2016 Polyarthralgia 09/06/2014 Nocturia 09/07/2013 Unintended weight gain 09/07/2013 Abdominal pain 09/06/2012 Hypertension 08/12/2012 Type 2 diabetes mellitus ([facility]) 08/08 Resolved Problems Problem Noted Date Diagnosed Date Resolved Date Cerumen impaction 02/10/2018 04/18/2018 Dizziness 02/08/2018 04/18/2018 Encounter for screening colonoscopy 03/04/2017 02/16/2020 Need for influenza vaccination 03/04/2017 02/16/2020 Screening PSA (prostate specific antigen) 03/04/2017 02/16/2020 Diabetic ketoacidosis ([facility]) 04/14/2016 08/24/2018 Dysphagia 09/10/2015 04/18/2018 Encounter for preventive health examination 08/06/2012 02/16/2020 Immunizations Immunization Administration Dates Next Due Fluzone 6 Months+ Quad (0.5 mL Prefilled Syringe) 04/06/2023,03/25/2022,03/25/2021,2019,03/16/2019 Fluzone Adult - >Age 3 (Pref illed Syringe) 04/18/2018 Influenza (Generic) 03/05/2016,03/06/2013 Influenza Adult (Generic) 03/16/2019,05/2018,03/04/2017,2015,03/07/2015,03/08/2014 PFIZER COVID-19 BIVALENT (12 +) mRNA, LNP-S, PF, 30 MCG/0.3 ML DOSE 03/25/2022 Pneumococcal (Prevnar 20) 10/05/2023 Tdap (Generic) 12/12/2014 Family History Medical History Relation Comments Cirrhosis Father Diabetes Maternal Aunt Relation Status Comments Father Maternal Aunt Social History Tobacco Use Types Packs/Day Years Used Date Smoking Tobacco: Every Day Cigarettes 1 34 Smokeless Tobacco: Never Tobacco Cessation:Ready to Q uit: No; Counseling Given: Yes 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 Alcohol Use Standard Drinks/Week Comments Not Currently 5 (1 standard drink = 0.6 oz pur e alcohol) a few beers each weekend PHQ-2 Answer Date Recorded Patient Health Questionnaire-2 Score 0 10/03/2024 Sex and Gender Information Value Date Recorded Sex Assigned at Male 10/03/2024 2:16 PM CDT Legal Sex Male 7:10 PM CDT Gender Identity Not on file Sexual Orientation Not on file Last Filed Vital Signs Vital Sign Reading Time Taken Comments Blood Pressure 136/86 10/03/2024 2:16 PM CDT Pulse 97 10/03/2024 2:16 PM CDT Temperature 36.6 C (97.8 F) 10/03/2024 2:16 PM CDT Respiratory Rate 16 10/03/2024 2:16 PM CDT Oxygen Saturation 96% 10/03/2024 2:16 PM CDT Inhaled Oxygen Concentration - - Weight 104.6 kg (230 lb 9.6 oz) 10/03/2024 2:16 PM CDT Height 177.8 cm (5' 10) 10/03/2024 2:16 PM CDT Body Mass Index 33.09 10/03/2024 2:16 PM CDT Plan of Treatment Health Maintenance Due Date Last Done Comments Colorectal Cancer Screening Colonoscopy (10 Years) 1966 Kidney Health Evaluation 1965 Hepatitis B Vaccines (1 of 3 - 19+ 3-dose series) 1985 Lung Cancer Screening 2016 Zoster Vaccines (1 of 2) 2016 Diabetes: Retinopathy Eye Exam 02/18/2023 02/18/2022 Hemoglobin A1C 01/04/2024 10/05/2023, 03/09, 07/14/2021, Additional history exists COVID-19 Vaccine ( season) 2024 03/25/2022, 03/28/2021 Lipid Panel 10/04/2024 10/05/2023, 09/05, 09/10/2020, Additional history exists DTaP, Tdap and Td Vaccines (2 - Td or Tdap) 12/12/2024 12/12/2014 Annual Physical 10/03/2025 10/03/2024, 09/05, 09/09/2022 Hepatitis C 09/20/2053 Postponed from 1984 (Patient Refused) Pneumococcal Vaccine: 50+ Years Completed 10/05/2023 PHQ-2 (Physician [place]) Completed 10/03/2024 Meningococcal B Vaccine Aged Out No l onger eligible based on patient's age to complete this topic Meningococcal Vaccine Aged Out No jordy yaneli eligible based on patient's age to complete this topic RSV Immunizations Under 20 Months Aged Out No longer eligible based on patient's age to complete this topic Procedures Procedure Name Priority Date/Time Associated Diagnosis Comments LIPID PANEL Routine 10/05/2023 1:42 PM CDT Mixed hyperlipidemia HEMOGLOBIN, GLYCOSYLATED Routine 10/05/2023 1:42 PM CDT Type 2 diabetes mellitus with hyperglycemia, without long-term current use of insulin Hyperlipidemia associated with type 2 diabetes mellitus DIABETIC RETINOPATHY EXAM (POSITIVE)(SCAN ORDER) Routine 02/18/2022 from Last 3 Months or Most Recently Relevant to Health Maintenance Results * (ABNORMAL) HEMOGLOBIN, GLYCOSYLATED (10/05/2023 1:42 PM CDT) HGB A1C 9.3(H) 4.5 - 6.2 % 10/05/2023 7:45 PM CDT [facility] ESTIMATED AVG GLUCOSE 220(H) 74 - 106 MG/DL 10/05/2023 7:45 PM CDT [facility] 10/05/2023 1:42 PM CDT [facility] Final Resul t [facility] [address] [place] [address], * (ABNORMAL) LIPID PANEL (10/05/2023 1:42 PM CDT) CHOLESTEROL 152 <200 MG/DL 10/05/2023 7:40 PM CDT [facility] TRIGLYCERIDES 234(H) <150 MG/DL 10/05/2023 7:40 PM CDT [facility] HDL 39(L) >40 MG/DL 10/05/2023 7:40 PM CDT [facility] LDL-C 66 <100 MG/DL 10/05/2023 7:40 PM CDT [facility] VLDL CALCULATION 47(H) 5 - 28 MG/DL 10/05/2023 7:40 PM CDT [facility] CHOL/HDL RATIO 3.9 0.0 - 4.0 10/05/2023 7:40 PM CDT [facility] LDL/HDL 1.7 0.41 - 2.13 10/05/2023 7:40 PM CDT [facility] NON HDL CHOLESTEROL 113 <140 MG/DL 10/05/2023 7:40 PM CDT [facility] 10/05/2023 1:42 PM CDT [facility] Final Resul t [facility] [address] [place] [address], [place] [phone] * DIABETIC RETINOPATHY EXAM (POSITIVE)(SCAN) (02/18/2022) [facility] Scanned SCANNING Final Resu lt [facility] from Last 3 Months or Most Recently Relevant to Health Maintenance Insurance Care Teams Yarding And Folding Machine Operator Relationship Specialty Start Date End Date Radha Bower APNP [address] [place] [id number] PCP - General NURSE PRACTITIONER 03/19/18
--- OUTSIDE RECORDS SUMMARY | 2025-01-16 02:42 | XMS_ITS | Encounter Summary ---
Author Organization [facility] Address [address] [place] [id number] Care Team Providers Care Spray Painter Name Role Phone Radha Bower Primary Care Provider Encounter Details Date Type Department Care Team (Latest Contact Info) Description 02/18/2018 Abstract [facility] Lisa Nichols MD Social History Tobacco Use Types Packs/Day Years [...] on filedocumented in this encounter Care Teams Spray Painter Relationship Specialty Start Date End Date Radha Bower APNP [address] [place] [id number] PCP - General NURSE PRACTITIONER 03/19/18 documented as of this encounter
--- NOTE | 2025-01-16 06:39 | SUR.PREOP ---
Pt told registration staff that he did not do his bowel prep and that he just wants the EGD done today. Doctor will be made aware when he arrives today. Message sent to GI office to make them aware.
[2025-01-16 06:55] VITALS: BP 157/89; PULSE 87; RESP 20; TEMP 36.5; O2SAT 100; BMI 33.5
--- NOTE | 2025-01-16 06:58 | SUR.PREOP ---
Pt did not take his prep for colonoscopy. Stated he had spoken with nurses in the endoscopy lab a few times to go over prep instructions, but he never received his prep instructions. Pt was also worried he would have not been able to go without eating any solid food while doing the prep r/t being diabetic. Pt educated on prep and measures to take to keep blood sugar elevated in the event he would have a colonoscopy in the future.
[2025-01-16] MEDS: LACTATED RINGERS 1,000 ML 150 ML IV CONT (07:09)
--- NOTE | 2025-01-16 07:12 | P.PNAN_ITS ---
Anes - Initial Pre Proc Eval Procedure: Operation Date: 01/16/25 08:00 Proposed Procedures p Esophagogastroduodenoscopy - Jerrell Barba MD Date/Time: 01/16/25 07:12 Surgeon: Jerrell Barba MD Pre Op Diagnosis: Other dysphagia, GERD, Screening Patient Data Age: 59 Gender: M Height: 1.78 m Weight: 105.8 kg Last Vital Signs Temp 97.7 F 01/16/25 06:55 Pulse 87 01/16/25 06:55 Resp 20 01/16/25 06:55 BP 157/89 H 01/16/25 06:55 Pulse Ox 100 01/16/25 06:55 O2 Del Method Room Air 01/16/25 06:55 Allergies Allergy/AdvReac Type Severity Reaction Status Date / Time erythromycin base Allergy Unknown Unknown Verified 01/16/25 06:54 Home Medications ?Medication ?Instructions ?Recorded ?Confirmed ?Type amlodipine 10 mg tablet (Norvasc) 10 mg PO DAILY 08/17/19 01/16/25 History famotidine 20 mg tablet (Pepcid) 20 mg PO BID #10 tabs 08/17/19 01/16/25 Rx glimepiride 2 mg tablet (Amaryl) 4 mg PO BID 08/17/19 01/16/25 History lisinopril 40 mg tablet 40 mg PO DAILY 08/17/19 01/16/25 History metformin 1,000 mg tablet 1,000 mg PO BID 08/17/19 01/16/25 History (Glucophage) omeprazole 20 mg tablet,delayed 20 mg PO DAILY #14 tabs 08/17/19 01/03/25 Rx release ondansetron 4 mg disintegrating 4 mg PO Q6H PRN nausea and 08/17/19 01/03/25 Rx tablet vomiting #10 tabs pantoprazole 40 mg tablet,delayed 40 mg PO DAILY 08/17/19 01/16/25 History release (Protonix) sucralfate 1 gram tablet (Carafate) See Rx Instructions .Route 08/28/19 01/03/25 Rx .COMPLEX #30 tabs penicillin V potassium 500 mg 500 mg PO Q12H 10 days #20 tabs 05/20/22 01/03/25 Rx tablet insulin glargine 100 48 unit subcut DAILY 01/03/25 01/16/25 History unit-lixisenatide 33 mcg/mL subcutaneous pen (Soliqua 100/33) Patient hx anesthesia problems: none Family hx anesthesia problems: none Results Review: All pre-operative results and documents have been reviewed as part of the pre- operative evaluation. [facility] Past Medical History Medical History GERD (gastroesophageal reflux disease) Alcohol use Type 2 diabetes mellitus Dysphagia Gastric cancer Gastric nodule Esophageal stricture Hiatal hernia Sleep apnea Bronchitis Hypertension Surgical History Surgical History Hx of tonsillectomy Family History Family History Other Diabetes mellitus Social History Social History Years smoked: 30 Smoking status: Current every day smoker Tobacco type: cigarettes Alcohol intake: current Drinks per week: 7 Substance use: never Substance use type: does not use Living arrangements: alone Gender identity (if verbalized by the patient): Male Spiritual care concerns: No Anes - Eval Final PreProcedure Day of Procedure 01/16/25 07:12 Patient weight: obese Lungs: normal air movement Airway: Mallampati scale class II and special considerations (Missing many teeth in the post aspect. ) Neurological: alert and oriented Last oral intake: >/= 8 hours ASA classification: III Emergent: no Anesthetic plan: proceed Anesthesia type and monitoring: general GIVS and standard monitoring Results Review: All pre-operative results and documents have been reviewed as part of the pre- operative evaluation. DM fsbs 130,. smoker, 1.5 ppd, suspect MARK, hyperlipidemia, now w dysphagia. Informed Consent: The patient's anesthetic plan and its attendant risks and benefits were discussed with the patient/family/POA. Questions were solicited and answers provided to the satisfaction of the patient/family/POA.
--- NOTE | 2025-01-16 08:01 | PM.HPGS ---
History of Present Illness History of Present Illness Consent: Risks, benefits, and alternatives have been discussed and questions answered. Patient agrees to proceed with procedure. Chief complaint: Other dysphagia, GERD, Screening Narrative: Eb Zacarias is a 59 year old male with dysphagia, h/o esophageal dilation Review of Systems Review of Systems: All systems reviewed & are unremarkable except as noted in HPI and below PMFSH Past Medical History Medical History (Updated 01/16/25 @ 08:02 by Jerrell Barba MD) GERD (gastroesophageal reflux disease) Alcohol use Type 2 diabetes mellitus Dysphagia Gastric cancer Gastric nodule Esophageal stricture Hiatal hernia Sleep apnea Bronchitis Hypertension Surgical History Surgical History Hx of tonsillectomy Family History Family History Other Diabetes mellitus Social History Social History Years smoked: 30 Smoking status: Current every day smoker Tobacco type: cigarettes Alcohol intake: current Drinks per week: 7 Substance use: never Substance use type: does not use Living arrangements: alone Gender identity (if verbalized by the patient): Male Spiritual care concerns: No Meds Home Medications and Allergies Home Medications ?Medication ?Instructions ?Recorded ?Confirmed ?Type amlodipine 10 mg tablet (Norvasc) 10 mg PO DAILY 08/17/19 01/16/25 History famotidine 20 mg tablet (Pepcid) 20 mg PO BID #10 tabs 08/17/19 01/16/25 Rx glimepiride 2 mg tablet (Amaryl) 4 mg PO BID 08/17/19 01/16/25 History lisinopril 40 mg tablet 40 mg PO DAILY 08/17/19 01/16/25 History metformin 1,000 mg tablet 1,000 mg PO BID 08/17/19 01/16/25 History (Glucophage) omeprazole 20 mg tablet,delayed 20 mg PO DAILY #14 tabs 08/17/19 01/03/25 Rx release ondansetron 4 mg disintegrating 4 mg PO Q6H PRN nausea and 08/17/19 01/03/25 Rx tablet vomiting #10 tabs pantoprazole 40 mg tablet,delayed 40 mg PO DAILY 08/17/19 01/16/25 History release (Protonix) sucralfate 1 gram tablet (Carafate) See Rx Instructions .Route 08/28/19 01/03/25 Rx .COMPLEX #30 tabs penicillin V potassium 500 mg 500 mg PO Q12H 10 days #20 tabs 05/20/22 01/03/25 Rx tablet insulin glargine 100 48 unit subcut DAILY 01/03/25 01/16/25 History unit-lixisenatide 33 mcg/mL subcutaneous pen (Soliqua 100/33) Allergies Allergy/AdvReac Type Severity Reaction Status Date / Time erythromycin base Allergy Unknown Unknown Verified 01/16/25 06:54 Vital Signs Vital Signs - 24 hr 01/16/25 06:55 Temperature 97.7 F Pulse Rate 87 Respiratory Rate 20 Blood Pressure 157/89 H Pulse Oximetry 100 Oxygen Delivery Room Air Exam Const: General: comfortable and no acute distress HENMT: Face/Nose/Sinus: Normal nares present Eyes: General: appearance normal, both eyes and all related structures Neck: Neck: no JVD Resp: Auscultation: clear to auscultation bilaterally Cardio: Rate: regular rate Rhythm: regular rhythm GI: Inspection: non-distended GI Palp: Yes Soft to palpation Skin: General skin exam: normal color Neuro: Speech: normal speech Extrem: General: normal to inspection Psych: Mental Status: mental status grossly normal Assessment and Plan Assessment and plan (1) Dysphagia: Code(s): R13.10 - Dysphagia, unspecified Status: Acute Assessment and Plan: egd
--- NOTE | 2025-01-16 08:14 | S_PTH ---
PATIENT: Eb Zacarias LOC: [facility]#:[id number] AGE/SX: 59/M ROOM: RE01/16/[address]: Jerrell Barba MD : 1965 BED: DIS: 01/16/2025 SPEC #: [id number] RECD: 01/16/25 09:46 STATUS: KRUNAL REMichael #: [id number] EMERY: 01/16/25 08:[address]: Jerrell Barba DEPT: [facility] Surgical RECD BY: Emma Hill ENTERED: 01/16/25 09:46 SP TYPE: Surgical OTHR DR: Radha Bower, SATELLITE TELEVISION INSTALLER Tissues: A - Gastric Biopsy Procedures: Hematoxylin and Eosin Stain Gross and Microscopic Level 4
[2025-01-16 08:17] VITALS: BP 131/76; PULSE 80; RESP 15; O2SAT 98
[2025-01-16 08:27] VITALS: BP 140/83; PULSE 80; RESP 26; O2SAT 99
[2025-01-16 08:37] VITALS: BP 125/75; PULSE 78; RESP 20; O2SAT 100
== END 2025-01-16 08:42 | disposition home or self-care (01) ==
PROVIDERS: PCP Registered Nurse; Referring Provider Registered Nurse; Visit Provider Internal Medicine Gastroenterology
PROC: 0DJ08ZZ Inspection of Upper Intestinal Tract, Via Natural or Artificial Opening Endoscopic (ICD-10-PCS; CPT 43249; principal; 2025-01-16 08:00)
DX: K22.2 Esophageal obstruction (principal); K44.9 Diaphragmatic hernia without obstruction or gangrene; K21.9 Gastro-esophageal reflux disease without esophagitis; I10 Essential (primary) hypertension; E78.5 Hyperlipidemia, unspecified; E11.9 Type 2 diabetes mellitus without complications; G47.30 Sleep apnea, unspecified; F17.210 Nicotine dependence, cigarettes, uncomplicated; E66.9 Obesity, unspecified; Z68.33 Body mass index [BMI] 33.0-33.9, adult; Z79.84 Long term (current) use of oral hypoglycemic drugs; Z79.4 Long term (current) use of insulin; Z98.890 Other specified postprocedural states; Z85.028 Personal history of other malignant neoplasm of stomach; Z87.19 Personal history of other diseases of the digestive system
CPT/HCPCS: 43249; 43239; 82948; 88305; C1726; J2003; J2704; J7120

== ENCOUNTER 2025-05-03 11:34 | Emergency (ER) | payer BC, SELFPAY ==
[2025-05-03 11:38] VITALS: BP 147/92; PULSE 95; RESP 18; TEMP 36.3; O2SAT 100
--- OUTSIDE RECORDS SUMMARY | 2025-05-03 12:03 | XMS_ITS | Clinical Summary ---
Author Organization [facility] Address Formerly [facility] [place] [address] Care Team Providers Care Supervisor Maintenance And Custodians Name Role Phone Radha Bower EMEKA Primary Care Provider Allergies Active Allergy Reactions Criticality Noted Date Comments Erythromycin Hives 08/08/2012 Medications Glucose Blood (CONTOUR NEXT TEST) test strip daily. 02/15/20 18 Active glimepiride 2 MG tabletIndications :Essential hypertension,Type 2 diabetes mellitus without complication, without long-term current use of insulin ([facility]),Need for influenza vaccination Take 2 tabs twice daily 360 tablet 1 04/18/20 18 Active metFORMIN 1000 MG tabletIndications :Type 2 diabetes mellitus without complication, without long-term current use of insulin ([facility]) Take 1 tablet (1,000 mg total) by mouth 2 (two) times daily. 180 tablet 3 08/25/19 19 Active phentermine (ADIPEX-P) 37.5 MG tablet Take 1 tablet (37.5 mg total) by mouth before breakfast. 08/13/19 23 Active SOLIQUA 100-33 UNT-MCG/ML Solution Pen-injector Inject 30 Units into the skin daily. 09/01/19 24 Active pantoprazole EC (PROTONIX) 40 MG tabletIndications :Gastroesophageal reflux disease, unspecified whether esophagitis present TAKE 1 TABLET(40 MG) BY MOUTH EVERY MORNING BEFORE BREAKFAST 90 tablet 3 01/05/20 25 Active rosuvastatin (CRESTOR) 10 MG tabletIndications :Mixed hyperlipidemia TAKE 1 TABLET(10 MG) BY MOUTH EVERY NIGHT AT BEDTIME 90 tablet 1 03/16/20 25 Active nicotine (NICODERM CQ) 21 MG/24HRIndication s:Cigarette nicotine dependence without complication Place 1 patch (21 mg total) onto the skin daily for 30 days. 28 patch 04/20/20 25 025 Active lisinopril (PRINIVIL) 40 MG tabletIndications :Primary hypertension TAKE 1 TABLET(40 MG) BY MOUTH DAILY 90 tablet 1 04/30/20 25 Active amLODIPine (NORVASC) 10 MG tabletIndications :Primary hypertension TAKE 1 TABLET(10 MG) BY MOUTH DAILY 90 tablet 1 04/30/20 25 Active lisinopril (PRINIVIL) 40 MG tabletIndications :Essential hypertension TAKE 1 TABLET(40 MG) BY MOUTH DAILY 90 tablet 1 11/01/19 25 025 Discontinued amLODIPine (NORVASC) 10 MG tabletIndications :Essential hypertension TAKE 1 TABLET(10 MG) BY MOUTH DAILY 90 tablet 1 11/01/19 25 025 Discontinued clotrimazole (MYCELEX) 10 MG trocheIndications :Thrush, oral Take 1 Ruchi (10 mg total) by mouth 5 (five) times daily for 10 days. 50 Ruchi 04/10/20 25 025 fluconazole (DIFLUCAN) 100 MG tabletIndications :Oral thrush Take 1 tablet (100 mg total) by mouth daily for 7 days. 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 diabetes mellitus 03/25/2020 Overview (09/09/2022): Last Assessment & Plan: Reviewed pt recent eye exam report Keep following with Opthalmology as advised Keep working on tighter glycemic control GERD (gastroesophageal reflux disease) 0 Thyroid nodule 02/23/2018 Fatigue 02/08/2018 Multinodular goiter 11/21/2017 BMI 34.0-34.9,adult 03/04/2017 Abnormal TSH 09/04/2016 Polyarthralgia 09/06/2014 Nocturia 09/07/2013 Unintended weight gain 09/07/2013 Abdominal pain 09/06/2012 Hypertension 08/12/2012 Type 2 diabetes mellitus 08/08/2012 Resolved Problems Problem Noted Date Diagnosed Date Resolved Date Cerumen impaction 02/10/2018 04/18/2018 Dizziness 02/08/2018 04/18/2018 Encounter for screening colonoscopy 03/04/2017 02/16/2020 Need for influenza vaccination 03/04/2017 02/16/2020 Screening PSA (prostate specific antigen) 03/04/2017 02/16/2020 Diabetic ketoacidosis 04/14/20162018 Dysphagia 09/10/2015 04/18/2018 Encounter for preventive health examination 08/06/2012 02/16/2020 Encounters Date Type Department Care Team Description 04/20/2025 7:00 AM LOGISTICS ACCOUNT MANAGER Office Visit [facility] Family [facility] Internal Medicine [address] [phone] Radha Bower APNP Thrush 04/20/2025 Travel 04/10/2025 10:40 AM LOGISTICS ACCOUNT MANAGER Office Visit [facility] Family & Internal [address] [phone] Radha Bower APNP Thrush (Pt states he has been dealing with thrush on and off since he was sick in December. He was given Nystatin oral susp in Mar, and fluconazole x 7 days , which he just finished today.) 04/10/2025 Travel from Last 3 Months Immunizations Immunization Administration Dates Next Due Fluzone [...] Date Smoking Tobacco: Every Day Cigarettes 1 34.1 Started: 04/10/1991 Smokeless Tobacco: Never Tobacco Cessation:Ready to Q uit: No; Counseling Given: Yes Comments:Provider to public relations counselor Alcohol Use Standard Drinks/Week Comments Not Currently [...] Sign Reading Time Taken Comments Blood Pressure 138/72 04/20/2025 7:15 AM LOGISTICS ACCOUNT MANAGER Pulse 89 04/20/2025 7:05 AM LOGISTICS ACCOUNT MANAGER Temperature 36.7 C (98.1 F) 04/20/2025 7:05 AM LOGISTICS ACCOUNT MANAGER Respiratory Rate 18 04/20/2025 7:05 AM LOGISTICS ACCOUNT MANAGER Oxygen Saturation 96% 04/20/2025 7:05 AM LOGISTICS ACCOUNT MANAGER Inhaled Oxygen Concentration - - Weight 104.2 kg (229 lb 12.8 oz) 04/20/2025 7:05 AM LOGISTICS ACCOUNT MANAGER Height 177.8 cm (5' 10) 04/20/2025 7:05 AM LOGISTICS ACCOUNT MANAGER Body Mass Index 32.97 04/20/2025 7:05 AM LOGISTICS ACCOUNT MANAGER Plan of Treatment Health Maintenance Due Date Last Done Comments Colorectal Cancer Screening Colonoscopy (10 Years) 1966 Kidney Health Evaluation 1966 Lung Cancer Screening 2016 Zoster Vaccines (1 of 2) 2016 Hemoglobin A1C 01/04/2024 10/05/2023, 03/09, 07/14/2021, Additional history exists Diabetes: Retinopathy Eye Exam 02/19/2024 02/18/2022 Lipid Panel 10/04/2024 10/05/2023, 09/05, 09/10/2020, Additional history exists DTaP, Tdap and Td Vaccines (2 - Td or Tdap) 12/12/2024 12/12/2014 COVID-19 Vaccine ( season) 2025 03/25/2022, 03/28/2021 Influenza Adult (#1) 2025 04/06/2023, 03/25/2022, 03/25/2021, Additional history exists Annual Physical 10/03/2025 10/03/2024, 09/05, 09/09/2022 Hepatitis C 09/20/2053 Postponed from 1984 (Patient Refused) Pneumococcal Vaccine: 50+ Years Completed 10/05/2023 PHQ-2 (Physician Council) Completed 10/03/2024 Hepatitis A Vaccines Aged Out No long er eligible based on patient's age to complete this topic Meningococcal B Vaccine Aged Out No l [...] - 6.2 % 10/05/2023 7:45 PM CDT -[facility] [place], DANIA ESTIMATED AVG GLUCOSE 220(H) 74 - 106 MG/DL 10/05/2023 7:45 PM CDT [facility] EMERALD COASTRTHUGrace STANDARD 10/05/2023 1:42 PM CDT [facility]ha [facility] Final Resul t Performing Organization Address City/[facility]/ZIP Co de Phone Number [facility] ANGELHUGrace STANDARD [address] [place] [address], [place] [phone] * (ABNORMAL) LIPID PANEL (10/05/2023 1:42 PM CDT) [employer] Signature CHOLESTEROL 152 <200 MG/DL 10/05/2023 7:40 PM CDT [facility] TRIGLYCERIDES 234(H) <150 MG/DL 10/05/2023 7:40 PM CDT [facility] HDL 39(L) >40 MG/DL 10/05/2023 7:40 PM CDT [facility] LDL-C 66 <100 MG/DL 10/05/2023 7:40 PM CDT [facility] VLDL CALCULATION 47(H) 5 - 28 MG/DL 10/05/2023 7:40 PM CDT [facility] CHOL/HDL RATIO 3.9 0.0 - 4.0 10/05/2023 7:40 PM CDT [facility] LDL/HDL 1.7 0.41 - 2.13 10/05/2023 7:40 PM CDT [facility] NON HDL CHOLESTEROL 113 <140 MG/DL 10/05/2023 7:40 PM CDT [facility] 10/05/2023 1:42 PM CDT Radha [facility] Final Resul t Performing Organization Address City/[facility]/ZIP Co de Phone Number [facility] STANDARD [address] [place] [address], [place] [phone] * DIABETIC RETINOPATHY EXAM (POSITIVE)(SCAN) (02/18/2022) [facility] Scanned SCANNING Final Resu lt [facility] from Last 3 Months or Most Recently Relevant to Health Maintenance Insurance [facility] Care Teams Supervisor Maintenance And Custodians Relationship Specialty Start Date End Date Radha Bower APNP [address] [place] [phone] PCP - General NURSE PRACTITIONER 03/19/18
--- OUTSIDE RECORDS SUMMARY | 2025-05-03 12:03 | XMS_ITS | Clinical Summary ---
Author Organization [facility] Physician Office Building [address] [place] [phone] Care Team Providers Care Service Dispatcher Name Role Phone Radha Bower Primary Care Provider + Allergies Active Allergy Reactions Criticality Noted Date Comments Erythromycin Hives Medium 08/08/2012 Medications amLODIPine (NORVASC) 10 mg tablet Take 1 tablet (10 mg total) by mouth daily 019 Active lisinopril (PRINIVIL,ZEST RIL) 40 mg tablet Take 1 tablet (40 mg total) by mouth daily [address] (PROTONIX) 40 mg EC tablet Take 1 tablet (40 mg total) by mouth daily 019 Active CONTOUR NEXT METER miscIndication s:Type 2 diabetes mellitus with hyperglycemia, without long-term current use of insulin ([facility]) FOR DAILY USE DX:E11.65 not insulin dependent 1 each 020 Active lancets miscIndication s:Type 2 diabetes mellitus with hyperglycemia, with long-term current use of insulin ([facility]) Lancets for contour next meter.test blood sugars 2 times daily 100 each 3 021 Active rosuvastatin (CRESTOR) 10 mg tablet 021 Active pen needle, diabetic (BD Mikaela 2nd Gen Pen Needle) 32 gauge x 5/32 needleIndicati ons:Type 2 diabetes mellitus with hyperglycemia, with long-term current use of insulin (HCC) Use 4 x daily as directed 120 each 11 022 Active insulin glargine-lixis enatide (Soliqua 100/33) 100 unit-33 mcg/mL insulin penIndications :Type 2 diabetes mellitus with hyperglycemia, with long-term current use of insulin ([facility]) Inject 60 Units under the skin daily 30 mL 3 025 2025 Active Additional Information Patient taking differently: 52 Unitssubcutaneous Daily, Reported on 04/03/2025 glimepiride (AMARYL) 2 mg tabletIndicati ons:Type 2 diabetes mellitus with hyperglycemia, with long-term current use of insulin ([facility]) TAKE 2 TABLETS(4 MG) BY MOUTH TWICE DAILY WITH MEALS 360 tablet 3 025 Active phentermine (ADIPEX-P) 37.5 mg tabletIndicati ons:Class 1 obesity due to excess calories with serious comorbidity and body mass index (BMI) of 33.0 to 33.9 in adult Take 1 tablet (37.5 mg total) by mouth daily before breakfast 90 tablet 1 Active metFORMIN (GLUCOPHAGE) 1,000 mg tabletIndicati ons:Type 2 diabetes mellitus with hyperglycemia, with long-term current use of insulin ([facility]) Take 1 tablet (1,000 mg total) by mouth 2 (two) times a day with meals 180 tablet 025 Active Contour Next Test Strips stripIndicatio ns:Type 2 diabetes mellitus with hyperglycemia, with long-term current use of insulin ([facility]) USE TO TEST TWICE DAILY 200 strip 11 025 Active Contour Next Test Strips stripIndicatio ns:Type 2 diabetes mellitus with hyperglycemia, with long-term current use of insulin ([facility]) USE TO TEST TWICE DAILY 200 strip 11 024 2024 Discontinued fluconazole (DIFLUCAN) 200 mg tabletIndicati ons:Upper Respiratory/HE ENT Infection Take 1 tablet (200 mg total) by mouth daily for 7 days 7 tablet 025 2024 Active Problems Problem Noted Date Diagnosed Date Hyperlipidemia associated with type 2 diabetes emily michael 12/02/2020 Assessment & Plan (04/03/2025 8:37 AM CDT): Chronic problem. At goal on current Rosuvastatin 10mg. Last lipid panel: 09/13/24 LDL=68, DK=047. Assessment & Plan (12/28/2024 11:39 AM CDT): Chronic problem. At goal on current Rosuvastatin 10mg. Last lipid panel: 09/13/24 LDL=68, LC=581. Assessment & Plan (09/08/2024 9:21 AM CDT): Chronic problem. At goal on current Rosuvastatin 10mg. Last lipid panel: 10/05/23 LDL=66, VN=614. Will update labs. Does not mychart. Verified phone #/address to contact re: results. Assessment & Plan (04/25/2024 9:51 AM LINEN ROOM CUSTODIAN): Chronic problem. At goal on current Rosuvastatin 10mg. Last lipid panel: 10/05/23 LDL=66, VD=602. Assessment & Plan (12/28/2023 1:44 PM CDT): Chronic problem. At goal on current Rosuvastatin 10mg. Last lipid panel: 10/05/23 LDL=66, CA=676. Assessment & Plan (03/22/2023 2:29 PM CDT): Chronic problem. At goal on current Rosuvastatin 10mg. Last lipid panel: 09/17/22 LDL=70, PM=655. Assessment & Plan (11/30/2022 7:12 PM CDT): Patient on statin therapy Tolerating well Assessment & Plan (04/06/2022 2:03 PM CDT): Patient on statin therapy Tolerating well Assessment & Plan (10/20/2021 11:09 AM CDT): Patient on statin therapy Tolerating well Assessment & Plan (07/14/2021 11:49 AM LINEN ROOM CUSTODIAN): Patient on statin therapy Tolerating well Assessment [...] use of insulin 11/21/2018 Assessment & Plan (04/03/2025 9:15 AM CDT): Chronic problem. A1c uncontrolled but decreased from 9.3% 12/28/24 to now 8.4%. Reviewed that goal is 7.0% or less. Discussed to keep an eye on blood sugars & food he's eating. I'd like to increase the Soliqua up to 60 units but he wanted to wait. If blood sugar stays up--he's to think about bumping up 2 units weekly to 60 units. Will readdress at next appt. Current medications: Metformin 1000mg twice daily with meals Glimepiride 4 mg twice daily with meals Soliqua 52 units daily UTD on labs. UTD on DM eye exam: 08/09/24 Mild NPDR, no DME [facility]. Had appt 12/2024; letter sent to get copy of report. Has appt 05/2025; will send letter at that time. Strive for regular exercise (30min most days) and diet (get at least 4-5 servings of fruit and veggies daily, avoid processed foods, increase lean protein intake and decrease carb portions as well as fruit juices, regular soda & desserts). Watch carbs and simple sugars. Check the blood sugar twice daily. Check the feet daily for skin breakdown and infection. Assessment & Plan (12/28/2024 11:53 AM CDT): [...] labs. UTD on DM eye exam (05/12/24 [facility]. L eye Mild NPDR, [...] results. UTD on DM eye exam (05/12/24 [facility]. L eye Mild NPDR, [...] infection. Assessment & Plan (04/25/2024 10:06 AM LINEN ROOM CUSTODIAN): Chronic problem. A1c uncontrolled and worsened from [...] months Assessment & Plan (07/14/2021 1:12 PM LINEN ROOM CUSTODIAN): Chronic, uncontrolled, worsening A1c 8.7% Suspect postprandial [...] months. Assessment & Plan (07/15/2020 2:02 PM LINEN ROOM CUSTODIAN): Diabetes is unchanged HbA1c - 7.9 % [...] . Assessment & Plan (06/07/2019 7:32 PM LINEN ROOM CUSTODIAN): Diabetes is improving with treatment and lifestyle [...] type 2, - patho physiology, short and retirement complications of uncontrolled DM, diet and exercise [...] reassessed in 3 months. Hypertension associated with type 2 diabetes la litus 11/21/2018 Assessment & Plan (04/03/2025 8:37 AM CDT): Chronic problem. Currently controlled Lisinopril 40mg daily, amlodipine 10mg daily Assessment & Plan (12/28/2024 11:39 AM CDT): Chronic problem. Currently controlled Lisinopril 40mg daily, amlodipine 10mg daily Assessment & Plan (09/08/2024 9:21 AM CDT): Chronic problem. Currently controlled Lisinopril 40mg daily, amlodipine 10mg daily Will update labs. Does not mychart. Verified phone #/address to contact re: results. Assessment & Plan (04/25/2024 9:51 AM LINEN ROOM CUSTODIAN): Chronic problem. Currently controlled Lisinopril 40mg daily, [...] appointment. Assessment & Plan (07/14/2021 11:48 AM LINEN ROOM CUSTODIAN): Hypertension is improving with treatment. Continue current [...] appointment. Assessment & Plan (07/15/2020 1:55 PM LINEN ROOM CUSTODIAN): Hypertension is improving with treatment. Continue current [...] appointment. Assessment & Plan (06/07/2019 7:33 PM LINEN ROOM CUSTODIAN): Hypertension is improving with treatment. Continue current [...] therapy Assessment & Plan (07/14/2021 1:12 PM LINEN ROOM CUSTODIAN): Chronic, slightly worsening Discussed about healthy lifestyle [...] therapy Assessment & Plan (07/15/2020 1:54 PM LINEN ROOM CUSTODIAN): Chronic, worsening Discussed about healthy lifestyle habits [...] discussed. Assessment & Plan (06/07/2019 7:33 PM LINEN ROOM CUSTODIAN): Obesity is improving with lifestyle modifications. Discussed [...] aerobic exercise program discussed. Multinodular goiter 11/21/2017 Assessment & Plan (04/03/2025 9:14 AM CDT): Chronic problem. TSH mildly suppressed 09/2024. Had thyroid bx completed 02/18/18. Has not had US thyroid since that time. US thyroid ordered; to have done at [facility]. He is to call to set up. Gastric polyp 11/13/2015 Encounters Date Type Department Care Team Description 04/05/2025 Orders Only [facility] Diabetes and Endocrinology [address] [place] [phone] ProviderAnn-Marie MD 04/03/2025 8:30 AM CDT Office Visit [facility] Diabetes and Endocrinology [address] [place] [phone] Jahaira Mackey NP Type 2 diabetes mellitus with hyperglycemia, with long-term current use of insulin (HCC) (Primary Dx); Hypertension associated with type 2 diabetes mellitus (HCC); Hyperlipidemia associated with type 2 diabetes mellitus (HCC); Multinodular goiter; Oral candidosis 02/27/2025 Telephone [facility] Diabetes and Endocrinology [address] [place] [phone] Jahaira Mackey NP request for refill (Metformin) from Last 3 Months Surgical History Surgery [...] Tobacco: Every Day Cigarettes Smokeless Tobacco: Never Tobacco Cessation:Ready to Q uit: Not Asked; Counseling Given: Not Answered Alcohol Use Standard Drinks/Week Comments Yes 0 [...] on file Legal Sex Male 2:13 AM LINEN ROOM CUSTODIAN Gender Identity Not on file Sexual Orientation Not on file Last Filed Vital Signs Vital Sign Reading Time Taken Comments Blood Pressure 116/72 04/03/2025 8:25 AM CDT Pulse 91 04/03/2025 8:25 AM CDT Temperature - - Respiratory Rate 18 04/03/2025 8:25 AM CDT Oxygen Saturation - - Inhaled Oxygen Concentration - - Weight 105.2 kg (231 lb 14.4 oz) 04/03/2025 8:25 AM CDT Height 177.8 cm (5' 10) 04/03/2025 8:25 AM CDT Body Mass Index 33.27 04/03/2025 8:25 AM CDT Plan of Treatment Health Maintenance Due Date Last Done Comments Colon Cancer Screening-Colonoscopy 1966 Hepatitis C Screening 1966 Prostate Cancer Screening-PSA 1966 Hepatitis B Screening 1984 Regular Well Visit/Exam 18-64 1984 Pneumococcal vaccine <65 (1 of 2 - PCV) 1985 Zoster Vaccine (1 of 2) 2016 Depression Screening 04/06/2023 04/06/2022, 10/20/2021, 07/14/2021, Additional history exists DTaP/Tdap/Td Vaccine (2 - Td or Tdap) 12/12/2024 12/12/2014 Covid-19 Vaccine (2 - 2024-2 6 season) 2025 03/28/2021 Influenza Vaccine (#1) 2025 , 03/25/2022, 03/25/2021, Additional history exists Albumin Creatinine Ratio, Urine 09/13/2025 09/13/2024, 10/05/2023, 07/04/2021, Additional history exists Lipid Panel 09/13/2025 09/13/2024, 09/07, 10/05/2023, Additional history exists eGFR 09/13/2025 09/13/2024, 09/07, 09/17/2022, Additional history exists Hemoglobin A1C 10/02/2025 04/03/2025, 12/06, 09/08/2024, Additional history exists Dilated Eye Exam 12/20/2025 12/20/2024, 10/2024, 05/12/2024, Additional history exists Foot Exam 12/28/2025 12/28/2024, 12/06, 11/30/2022, Additional history exists Procedures Procedure Name Priority Date/Time Associated Diagnosis Comments POCT HEMOGLOBIN A1C Routine 04/03/2025 8 :40 AM CDT Type 2 diabetes mellitus with hyperglycemia, with long-term current use of insulin (HCC) POCT GLUCOSE Routine 04/03/2025 8:34 AM CDT Type 2 diabetes mellitus with hyperglycemia, with long-term current use of insulin (HCC) DIABETES EYE EXAM Routine 12/20/2024 8:11 AM CDT EGFR Routine 09/13/2024 10:15 AM CDT Type [...] with long-term current use of insulin (HCC) from Last 3 Months or Most Recently Relevant to Health Maintenance Results * (ABNORMAL) POCT hemoglobin A1c (04/03/2025 8:40 AM CDT) Hemoglobin A1C, POC 8.4(A) 4.0 - 5.6 % Blood 04/03/2025 8:40 AM CDT us Jahaira Mackey NP POINT OF CARE TEST ORDERA BLES Final Result * POCT glucose (04/03/2025 8:34 AM CDT) Glucose Blood, POC 204 Normal Fasting 70 - 100, Random <200 mg/dL Blood 04/03/2025 8:34 AM CDT us Jahaira Mackey NP POINT OF CARE TEST ORDERA BLES Final Result * DIABETES EYE EXAM (12/20/2024 8:11 AM CDT) us Historical Provider HEALTH MAINTENANCE Final Result * eGFR (09/13/2024 10:15 AM [...] 09/13/2024 8:54 PM CDT us Jahaira Mackey FINISHING DEPARTMENT SUPERVISOR LAB BLOOD ORDERABLES Dedra l Result Performing Organization Address [facility] Phone Number ELENA [phone] [facility] Department [place] [address] * (ABNORMAL) Albumin Creatinine Ratio, Urine (09/13/2024 10:15 AM CDT) Albumin Ur 258.5 mg/L Comment: Interpretive Data No reference range established. Current interpretive data was last revised 2018. Creatinine Ur 69.9 mg/dL ELENA Comment: Interpretive Data No reference range established. Current interpretive data was last revised 2018. Albumin Creatinine Ratio, Ur 370(H) 1 - 29 mg/g ELENA Urine 09/13/2024 10:1 5 AM CDT 09/13/2024 8:51 PM CDT us Jahaira Mackey FINISHING DEPARTMENT SUPERVISOR LAB URINE ORDERABLES Dedra l Result Performing Organization Address [facility] de Phone Number ELENA [address] [address] Department [place] [address] * (ABNORMAL) Lipid panel (09/13/2024 10:15 AM [...] 3. Richard Louise et al. BAY Cardiol. 2020 October 05;5(5):540-548. doi: [email or web address] Current Interpretive Data was [...] revised on 2018. Chol/HDL ratio 4 ELENA STONER Blood 09/13/2024 10:1 5 AM CDT 09/13/2024 8:51 PM CDT us Jahaira Mackey NP LAB BLOOD ORDERABLES Dedra castellon Result ELENA STONER [id number] [address] Department [place] [address] from Last 3 Months or Most Recently Relevant to Health Maintenance [place] [employer] Care Teams Service Dispatcher Relationship Specialty Start Date End Date Radha Bower PA PCP - General Nurse Practitioner 09/27/18
--- OUTSIDE RECORDS SUMMARY | 2025-05-03 12:03 | XMS_ITS | Encounter Summary ---
Author Organization [facility] Address [address] [place] [id number] Care Team Providers Care Broom Bundler Name Role Phone Radha Bower Primary Care Provider [phone] Encounter Details Date Type Department Care Team [...] on filedocumented in this encounter Care Teams Broom Bundler Relationship Specialty Start Date End Date Radha Bower APNP [address] [place] [address] PCP - General NURSE PRACTITIONER 03/19/18 documented as of this encounter
--- OUTSIDE RECORDS SUMMARY | 2025-05-03 12:03 | XMS_ITS | Encounter Summary ---
Author Organization [facility] Address [address] [place] [address] Care Team Providers Care Abrasive Grinder Name Role Phone Radha Bower Primary Care Provider Encounter Details Date Type Department Care Team (Latest Contact Info) Description 02/18/2018 Abstract [facility] Lisa Nichols MD [...] on filedocumented in this encounter Care Teams Abrasive Grinder Relationship Specialty Start Date End Date Radha Bower APNP [address] [place] [phone] PCP - General NURSE PRACTITIONER 03/19/18 documented as of this encounter
--- NOTE | 2025-05-03 12:07 | PC.NURSE ---
Pt states he had [employer] for breakfast around 0800 today.
--- NOTE | 2025-05-03 13:12 | ED.GENADULT ---
HPI - General Adult General Chief complaint: Dental/Oral Stated complaint: thrush Time Seen by Provider: 05/03/25 11:51 History of Present Illness HPI narrative: Patient has been dealing with thrush for 44 days; tried nystatin course which not help at all, then fluconazole course which almost cleared up the thrush completely, has taken 2 weeks of it, and he he is still having some slight white spots to the size of the stone. He does have diabetes and has been trying his heart is keep it controlled, has also been trying to keep his alcohol intake and tobacco use control it Related Data Home Medications ?Medication ?Instructions ?Recorded ?Confirmed ?Last Taken ?Type amlodipine 10 mg tablet (Norvasc) 10 mg PO DAILY 08/17/19 01/16/25 01/15/25 History glimepiride 2 mg tablet (Amaryl) 4 mg PO BID 08/17/19 01/16/25 01/15/25 History lisinopril 40 mg tablet 40 mg PO DAILY 08/17/19 01/16/25 01/15/25 History metformin 1,000 mg tablet 1,000 mg PO BID 08/17/19 01/16/25 01/15/25 History (Glucophage) pantoprazole 40 mg tablet,delayed 40 mg PO DAILY 08/17/19 01/16/25 01/15/25 History release (Protonix) insulin glargine 100 48 unit subcut DAILY 01/03/25 01/16/25 01/15/25 History unit-lixisenatide 33 mcg/mL subcutaneous pen (Soliqua 100/33) Allergies Allergy/AdvReac Type Severity Reaction Status Date / Time erythromycin base Allergy Unknown Unknown Verified 01/16/25 06:54 Review of Systems Review of Systems: All systems reviewed & are unremarkable except as noted in HPI and below PMFSH Past Medical History Medical History (Updated 05/03/25 @ 12:18 by Hilda Larson MD) GERD (gastroesophageal reflux disease) Alcohol use Type 2 diabetes mellitus Dysphagia Gastric cancer Gastric nodule Esophageal stricture Hiatal hernia Sleep apnea Bronchitis Hypertension Surgical History Surgical History Hx of tonsillectomy Family History Family History Other Diabetes mellitus Social History Social History Years smoked: 30 Smoking status: Current every day smoker Tobacco type: cigarettes Alcohol intake: current Drinks per week: 7 Substance use: never Substance use type: does not use Living arrangements: alone Gender identity (if verbalized by the patient): Male Spiritual care concerns: No Exam Narrative: EXAMINATION OF ORGAN SYSTEMS/BODY AREAS: Constitutional: Vital signs per nursing GENERAL: [No acute distress, non-toxic appearing.] HEAD: Normal with no signs of head trauma. EYES: EOMI, conjunctiva normal ENT: Minimal amount of thrush on tongue, mainly just a little bit on the sides. LUNGS: Nonlabored breathing. HEART: [Regular rate and rhythm] ABD: [Soft], [nontender to palpation] EXT: Normal range of motion SKIN: [No rashes or lesions.] NEURO: [Alert. No gross focal sensory or strength deficits.] PSYCH: Normal affect Course Vital Signs Vital signs: Vital Signs Temperature 97.4 F L 05/03/25 11:38 Pulse Rate 95 05/03/25 11:38 Respiratory Rate 18 05/03/25 11:38 Blood Pressure 147/92 H 05/03/25 11:38 Pulse Oximetry 100 05/03/25 11:38 Oxygen Delivery Room Air 05/03/25 11:38 Temperature 97.4 F L 05/03/25 11:38 Pulse Rate 95 05/03/25 11:38 Respiratory Rate 18 05/03/25 11:38 Blood Pressure 147/92 H 05/03/25 11:38 Pulse Oximetry 100 05/03/25 11:38 Oxygen Delivery Room Air 05/03/25 11:38 Medical Decision Making [facility] Narrative Medical decision making narrative: 60M here for prolonged thrush, now done with 14d course of fluconazole with marked improvement but still some remaining to the sides. On my evaluation, IC barely any white on the tongue, total bili side, he I did a blood sugar which was elevated, discussed with patient that tobacco use and control blood sugar definitely would contribute to persistent symptoms. Will trial higher dose of fluconazole at this time, but also provided follow-up to ENT for further evaluation or possible culture if still not improved. Vital Signs Vital Signs: Vital Signs Temperature 97.4 F L 05/03/25 11:38 Pulse Rate 95 05/03/25 11:38 Respiratory Rate 18 05/03/25 11:38 Blood Pressure 147/92 H 05/03/25 11:38 Pulse Oximetry 100 05/03/25 11:38 Oxygen Delivery Room Air 05/03/25 11:38 Temperature 97.4 F L 05/03/25 11:38 Pulse Rate 95 05/03/25 11:38 Respiratory Rate 18 05/03/25 11:38 Blood Pressure 147/92 H 05/03/25 11:38 Pulse Oximetry 100 05/03/25 11:38 Oxygen Delivery Room Air 05/03/25 11:38 Lab Data Labs: Lab Results 05/03/25 Range/Units 12:05 POC Capillary Glucose 259 H (65-105) mg/dl Discharge Plan Discharge Clinical Impression: Thrush Patient Disposition: Home Condition: Stable Instructions: Oral Candidiasis (ED) Additional Instructions: Please follow up with ENT; try the meds as prescribed. You can always return to the ER if worse. Patient Language: Bahamian Prescriptions: New fluconazole 200 mg tablet 200 mg PO DAILY Qty: 14 0RF No Action glimepiride [Amaryl] 2 mg Tablet 4 mg PO BID amlodipine [Norvasc] 10 mg Tablet 10 mg PO DAILY pantoprazole [Protonix] 40 mg Tablet,Delayed Release (Dr/Ec) 40 mg PO DAILY metformin [Glucophage] 1,000 mg Tablet 1,000 mg PO BID lisinopril 40 mg Tablet 40 mg PO DAILY omeprazole 20 mg tablet,delayed release (DR/EC) 20 mg PO DAILY Qty: 14 0RF Patient Comments: Not taking famotidine [Pepcid] 20 mg tablet 20 mg PO BID Qty: 10 0RF Patient Comments: not taking ondansetron 4 mg tablet,disintegrating 4 mg PO Q6H PRN (Reason: nausea and vomiting) Qty: 10 0RF Patient Comments: not taking sucralfate [Carafate] 1 gram tablet See Rx Instructions .ROUTE .COMPLEX Qty: 30 0RF Patient Comments: not taking Rx Instructions: 1 g orally before each meal and before bed. Take 1 hour prior to other medications. penicillin V potassium 500 mg tablet 500 mg PO Q12H 10 Days Qty: 20 0RF Patient Comments: not taking Soliqua 100/33 100 unit-33 mcg/mL insulin pen 48 unit subcut DAILY Follow-up/Referrals: Geraldo Elliott MD [Physician, Ear, Nose, Throat] - 2 Days Cheli,ENIO Garcia [Primary Care Provider]
== END 2025-05-03 12:48 | disposition home or self-care (01) ==
PROVIDERS: Emergency Provider Emergency Medicine; PCP Registered Nurse
DX: B37.0 Candidal stomatitis (principal); I10 Essential (primary) hypertension; E11.9 Type 2 diabetes mellitus without complications; K21.9 Gastro-esophageal reflux disease without esophagitis; G47.30 Sleep apnea, unspecified; Z79.84 Long term (current) use of oral hypoglycemic drugs; Z79.899 Other long term (current) drug therapy; Z79.4 Long term (current) use of insulin
CPT/HCPCS: 82948; 99283

== ENCOUNTER 2025-05-08 08:08 | Outpatient (NON) | payer BC, SELFPAY ==
--- OUTSIDE RECORDS SUMMARY | 2025-05-08 08:11 | XMS_ITS | Encounter Summary ---
Author Organization [facility] Address [address] [place] [address] Care Team Providers Care Loader Operator/Ground Leader Name Role Phone Radha Bower Primary Care Provider Encounter Details Date Type Department Care Team (Latest Contact Info) Description 02/18/2018 Abstract [facility] Lisa Nichols MD Social History [...] on filedocumented in this encounter Care Teams Loader Operator/Ground Leader Relationship Specialty Start Date End Date Radha Bower APNP [address] [place] [id number] PCP - General NURSE PRACTITIONER 03/19/18 documented as of this encounter
--- OUTSIDE RECORDS SUMMARY | 2025-05-08 08:11 | XMS_ITS | Encounter Summary ---
Author Organization [facility] Address [address] [place] [address] Care Team Providers Care Recruiting Manager Name Role Phone Radha Bower Primary Care Provider [phone] Encounter Details Date Type Department Care Team [...] on filedocumented in this encounter Care Teams Recruiting Manager Relationship Specialty Start Date End Date Radha Bower APNP [address] [place] [address] PCP - General NURSE PRACTITIONER 03/19/18 documented as of this encounter
--- OUTSIDE RECORDS SUMMARY | 2025-05-08 08:11 | XMS_ITS | Clinical Summary ---
Author Organization [facility] [address] [place] [phone] Care Team Providers Care Insurance Processor Name Role Phone Radha Bower Primary Care [...] hyperglycemia, without long-term current use of insulin ([facility]) FOR DAILY USE DX:E11.65 not insulin dependent 1 each 020 Active lancets miscIndication s:Type 2 diabetes mellitus with hyperglycemia, with long-term current use of insulin ([facility]) Lancets for contour next meter.test blood sugars [...] hyperglycemia, with long-term current use of insulin ([facility]) Inject 60 Units under the skin daily 30 mL 3 025 2025 Active Additional Information Patient taking differently: 52 Unitssubcutaneous Daily, Reported on 04/03/2025 glimepiride (AMARYL) 2 mg tabletIndicati ons:Type 2 diabetes mellitus with hyperglycemia, with long-term current use of insulin ([facility]) TAKE 2 TABLETS(4 MG) BY MOUTH TWICE [...] hyperglycemia, with long-term current use of insulin ([facility]) Take 1 tablet (1,000 mg total) by mouth 2 (two) times a day with meals 180 tablet 025 Active Contour Next Test Strips stripIndicatio ns:Type 2 diabetes mellitus with hyperglycemia, with long-term current use of insulin ([facility]) USE TO TEST TWICE DAILY 200 strip 11 025 Active Contour Next Test Strips stripIndicatio ns:Type 2 diabetes mellitus with hyperglycemia, with long-term current use of insulin ([facility]) USE TO TEST TWICE DAILY 200 strip [...] Rosuvastatin 10mg. Last lipid panel: 09/13/24 LDL=68, KK=946. Assessment & Plan (12/28/2024 11:39 AM CDT): Chronic problem. At goal on current Rosuvastatin 10mg. Last lipid panel: 09/13/24 LDL=68, MO=518. Assessment & Plan (09/08/2024 9:21 AM CDT): Chronic problem. At goal on current Rosuvastatin 10mg. Last lipid panel: 10/05/23 LDL=66, YW=951. Will update labs. Does not mychart. Verified phone #/address to contact re: results. Assessment & Plan (04/25/2024 9:51 AM INCINERATOR ATTENDANT): Chronic problem. At goal on current Rosuvastatin 10mg. Last lipid panel: 10/05/23 LDL=66, WW=897. Assessment & Plan (12/28/2023 1:44 PM CDT): Chronic problem. At goal on current Rosuvastatin 10mg. Last lipid panel: 10/05/23 LDL=66, HM=910. Assessment & Plan (03/22/2023 2:29 PM CDT): Chronic problem. At goal on current Rosuvastatin 10mg. Last lipid panel: 09/17/22 LDL=70, XI=703. Assessment & Plan (11/30/2022 7:12 PM CDT): Patient on statin therapy Tolerating well Assessment & Plan (04/06/2022 2:03 PM CDT): Patient on statin therapy Tolerating well Assessment & Plan (10/20/2021 11:09 AM CDT): Patient on statin therapy Tolerating well Assessment & Plan (07/14/2021 11:49 AM INCINERATOR ATTENDANT): Patient on statin therapy Tolerating well Assessment [...] infection. Assessment & Plan (04/25/2024 10:06 AM INCINERATOR ATTENDANT): Chronic problem. A1c uncontrolled and worsened from [...] months Assessment & Plan (07/14/2021 1:12 PM INCINERATOR ATTENDANT): Chronic, uncontrolled, worsening A1c 8.7% Suspect postprandial [...] months. Assessment & Plan (07/15/2020 2:02 PM INCINERATOR ATTENDANT): Diabetes is unchanged HbA1c - 7.9 % [...] . Assessment & Plan (06/07/2019 7:32 PM INCINERATOR ATTENDANT): Diabetes is improving with treatment and lifestyle [...] type 2, - patho physiology, short and termite control service representative complications of uncontrolled DM, diet and exercise [...] results. Assessment & Plan (04/25/2024 9:51 AM INCINERATOR ATTENDANT): Chronic problem. Currently controlled Lisinopril 40mg daily, [...] appointment. Assessment & Plan (07/14/2021 11:48 AM INCINERATOR ATTENDANT): Hypertension is improving with treatment. Continue current [...] appointment. Assessment & Plan (07/15/2020 1:55 PM INCINERATOR ATTENDANT): Hypertension is improving with treatment. Continue current [...] appointment. Assessment & Plan (06/07/2019 7:33 PM INCINERATOR ATTENDANT): Hypertension is improving with treatment. Continue current [...] therapy Assessment & Plan (07/14/2021 1:12 PM INCINERATOR ATTENDANT): Chronic, slightly worsening Discussed about healthy lifestyle [...] therapy Assessment & Plan (07/15/2020 1:54 PM INCINERATOR ATTENDANT): Chronic, worsening Discussed about healthy lifestyle habits [...] discussed. Assessment & Plan (06/07/2019 7:33 PM INCINERATOR ATTENDANT): Obesity is improving with lifestyle modifications. Discussed [...] US thyroid ordered; to have done at [facility]. He is to call to set up. Gastric polyp 11/13/2015 Encounters Date Type Department Care Team Description 04/05/2025 Orders Only [facility] Diabetes and Endocrinology [address] [place] [phone] ProviderAnn-Marie MD 04/03/2025 8:30 AM CDT Office Visit [facility] Diabetes and Endocrinology [address] [place] [phone] Jahaira Mackey NP Type 2 diabetes mellitus with hyperglycemia, with long-term current use of insulin (HCC) (Primary Dx); Hypertension associated with type 2 diabetes mellitus (HCC); Hyperlipidemia associated with type 2 diabetes mellitus (HCC); Multinodular goiter; Oral candidosis 02/27/2025 Telephone [facility] Diabetes and Endocrinology [address] [place] [phone] Jahaira Mackey NP request for refill [...] on file Legal Sex Male 2:13 AM INCINERATOR ATTENDANT Gender Identity Not on file Sexual Orientation [...] 09/13/2024 8:54 PM CDT us Jahaira Mackey INSTRUCTIONAL PARAPROFESSIONAL LAB BLOOD ORDERABLES Dedra l Result Performing Organization Address [facility] Phone Number ELENA [phone] [facility] Department [place] [address] * (ABNORMAL) Albumin Creatinine Ratio, Urine (09/13/2024 [...] 09/13/2024 8:51 PM CDT us Jahaira Mackey INSTRUCTIONAL PARAPROFESSIONAL LAB URINE ORDERABLES Dedra l Result Performing Organization Address [facility] de Phone Number ELENA [phone] Department [place] [address] * (ABNORMAL) Lipid panel (09/13/2024 10:15 AM [...] BLOOD ORDERABLES Dedra castellon Result ELENA STONER [phone] [address] Department [place] [address] from Last 3 Months or Most Recently Relevant to Health Maintenance [place] Care Teams Insurance Processor Relationship Specialty Start Date End Date Radha Bower PA PCP - General Nurse Practitioner 09/27/18
--- OUTSIDE RECORDS SUMMARY | 2025-05-08 08:11 | XMS_ITS | Clinical Summary ---
Author Organization [facility] Address [address] [place] [address] Care Team Providers Care Nurse Practitioner Manager Name Role Phone Unavailable Primary Care Provider [...] (1 of 2) 2016 PSA Discussion 2021 Influenza Immunization (#1) 02/05/202503/07, 02/28/2020, 03/16/2019, Additional history exists SARS-COV-2 Immunization (2024- season) 2025 03/28/2021, 08/24/2020, 08/03/2020 Respiratory Syncytial Virus (RSV) Immunization (Adult) (1 [...]
--- OUTSIDE RECORDS SUMMARY | 2025-05-08 08:11 | XMS_ITS | Clinical Summary ---
Author Organization [facility] Address [facility] [place] [address] Care Team Providers Care Sifting Operator Name Role Phone Radha Bower EMEKA Primary Care Provider Allergies Active Allergy Reactions Criticality Noted Date Comments Erythromycin Hives 08/08/2012 Medications Glucose Blood (CONTOUR NEXT TEST) test strip daily. 02/15/20 18 Active glimepiride 2 MG tabletIndications :Essential hypertension,Type 2 diabetes mellitus without complication, without long-term current use of insulin ([facility]),Need for influenza vaccination Take 2 tabs twice daily 360 tablet 1 04/18/20 18 Active metFORMIN 1000 MG tabletIndications :Type 2 diabetes mellitus without complication, without long-term current use of insulin ([facility]) Take 1 tablet (1,000 mg total) by [...] Department Care Team Description 04/20/2025 7:00 AM FOOD ANALYST Office Visit [facility] Family & Internal Medicine [address] [phone] Radha Bower APNP Thrush 04/20/2025 Travel 04/10/2025 10:40 AM FOOD ANALYST Office Visit [facility] Family & Internal [address] [phone] Radha Bower APNP Thrush (Pt states he [...] uit: No; Counseling Given: Yes Comments:Provider to christian counselor Alcohol Use Standard Drinks/Week Comments Not [...] Comments Blood Pressure 138/72 04/20/2025 7:15 AM FOOD ANALYST Pulse 89 04/20/2025 7:05 AM FOOD ANALYST Temperature 36.7 C (98.1 F) 04/20/2025 7:05 AM FOOD ANALYST Respiratory Rate 18 04/20/2025 7:05 AM FOOD ANALYST Oxygen Saturation 96% 04/20/2025 7:05 AM FOOD ANALYST Inhaled Oxygen Concentration - - Weight 104.2 kg (229 lb 12.8 oz) 04/20/2025 7:05 AM FOOD ANALYST Height 177.8 cm (5' 10) 04/20/2025 7:05 AM FOOD ANALYST Body Mass Index 32.97 04/20/2025 7:05 AM FOOD ANALYST Plan of Treatment Health Maintenance Due Date [...] Vaccine: 50+ Years Completed 10/05/2023 PHQ-2 (Physician Ewiiaapaayp) Completed 10/03/2024 Hepatitis A Vaccines Aged Out [...] - 6.2 % 10/05/2023 7:45 PM CDT -[facility], DANIA ESTIMATED AVG GLUCOSE 220(H) 74 - 106 MG/DL 10/05/2023 7:45 PM CDT [facility] 10/05/2023 1:42 PM CDT [facility] Final Resul t Performing Organization Address City/[facility]/ZIP Co de Phone Number [facility] ANGELHUGrace SARATOGA [address] [place] [address], [place] [phone] * (ABNORMAL) LIPID PANEL (10/05/2023 1:42 PM CDT) [facility] Signature CHOLESTEROL 152 <200 MG/DL 10/05/2023 7:40 PM CDT [facility] TRIGLYCERIDES 234(H) <150 MG/DL 10/05/2023 7:40 PM CDT [facility] HDL 39(L) >40 MG/DL 10/05/2023 7:40 PM CDT [facility] LDL-C 66 <100 MG/DL 10/05/2023 7:40 PM CDT [facility] VLDL CALCULATION 47(H) 5 - 28 MG/DL 10/05/2023 7:40 PM CDT [facility] CHOL/HDL RATIO 3.9 0.0 - 4.0 10/05/2023 7:40 PM CDT [facility] LDL/HDL 1.7 0.41 - 2.13 10/05/2023 7:40 PM CDT [facility] NON HDL CHOLESTEROL 113 <140 MG/DL 10/05/2023 7:40 PM CDT [facility] 10/05/2023 1:42 PM CDT Rd[facility] Final Resul t Performing Organization Address City/[facility]/ZIP Co de Phone Number ROSALINDA MEANS SARATOGA [address] [place] [address], [place] [phone] * DIABETIC RETINOPATHY EXAM (POSITIVE)(SCAN) (02/18/2022) [facility] Scanned SCANNING Final Resu lt [facility] ON[facility] from Last 3 Months or Most Recently Relevant to Health Maintenance Insurance [facility] Care Teams Sifting Operator Relationship Specialty Start Date End Date Radha Bower APNP [address] [place] [phone] PCP - General NURSE PRACTITIONER 03/19/18
== END 2025-05-08 08:09 | disposition home or self-care (01) ==
LOC: ANHGOSHLAB 08:08
PROVIDERS: PCP Registered Nurse; Visit Provider Otolaryngology
DX: B37.0 Candidal stomatitis (principal)
CPT/HCPCS: 87070; 87075

== ENCOUNTER 2025-05-15 10:16 | Outpatient (CLI) | payer BC, SELFPAY | END 2025-05-15 10:17 | disposition home or self-care (01) | PROVIDERS: PCP Registered Nurse; Visit Provider Otolaryngology | DX: K11.7 Disturbances of salivary secretion (principal) | CPT/HCPCS: 86235 ==